=== PATIENT | female | born 1950 | race Caucasian/White ===

== ENCOUNTER → 2016-11-05 | Outpatient (CLI) | payer MEDICARE, OTHER ==
--- NOTE | 2016-11-09 12:50 | MM ---
Reason for exam: screening (asymptomatic). Last mammogram was performed 1 year and 5 months ago. History: Patient is postmenopausal and has history of other cancer at age 54. Cyst aspiration of the left breast. Physical Findings: A clinical breast exam by your physician is recommended on an annual basis and results should be correlated with mammographic findings. MG 3D Screening Mammo W/Cad Bilateral CC and MLO view(s) were taken. Prior study comparison: June 11, 2015, bilateral MG screening mammo w CAD. February 06, 2014, bilateral MG screening mammo w CAD. Finding: There are stable grouped/clustered calcifications in the left breast. No significant changes in finding since June 11, 2015 and February 06, 2014. ASSESSMENT: Benign, BI-RAD 2 RECOMMENDATION: Routine screening mammogram of both breasts in 1 year.
== END | disposition home or self-care (01) ==
LOC: RADMAMWWP 13:44
PROVIDERS: ATTEND Internal Medicine Geriatric Medicine
DX: Z12.31 Encounter for screening mammogram for malignant neoplasm of breast (principal)
CPT/HCPCS: 77063; G0202

== ENCOUNTER → 2017-05-20 | Outpatient (CLI) | payer MEDICARE, OTHER ==
--- NOTE | 2017-05-20 10:01 | CT ---
EXAMINATION TYPE: CT thoracic spine wo con DATE OF EXAM: 05/20/2017 COMPARISON: NONE HISTORY: Pain CT DLP: 1288 mGycm Automated exposure control for dose reduction was used. FINDINGS: Vertebral bodies of the thoracic spine maintain normal vertebral body height and alignment. No gross evidence of spinal canal stenosis or neural foraminal narrowing are seen although these findings are better evaluated with MRI. Osseous structures appear intact. No displaced rib fractures are seen. Sof t tissues are unremarkable. Minimal multilevel degenerative change of the thoracic spine are seen see n as intervertebral joint space narrowing of the mid and upper thoracic spine and small anterior oste ophytes. There is apical pleural thickening, right greater than left. Dependent bibasilar subsegmental atelect asis seen as well as single right upper lobe 4 mm noncalcified pulmonary nodule on series 4 image 45 of series 5 image 66. Geographic groundglass opacities are seen within the lower lobes most pronounce d on the coronal images such as series 5 image 65 and 62. Incidental note of an inferior vena caval filter is made. Unenhanced partial visualization of the upp er abdomen is otherwise unremarkable. Fat attenuated subcentimeter lesion in the anterior left upper pole of the kidney most likely relates to a benign angiomyolipoma. IMPRESSION: 1. NO EVIDENCE OF ACUTE FRACTURE OR MALALIGNMENT OF THE THORACIC SPINE. MILD MULTILEVEL DEGENERATIVE CHANGES WITHOUT GROSS EVIDENCE OF SPINAL CANAL STENOSIS OR NEURAL FORAMINAL NARROWING. 2. MULTIFOCAL GROUNDGLASS GEOGRAPHIC OPACITIES WITH A BASILAR PREDOMINANCE WHICH MAY RELATE TO INFECT IOUS OR INFLAMMATORY PNEUMONITIS SUCH PNEUMONIA. THIS CAN ALSO BE SEEN IN THE VOLUME OVERLOAD ALTH OUGH THE HEART DOES NOT APPEAR ENLARGED. 3. SOLITARY NONCALCIFIED 4 MM PULMONARY NODULE. FOLLOW-UP CT COULD BE PERFORMED IN 12 MONTHS TO EVALU ATE FOR STABILITY.
== END | disposition home or self-care (01) ==
LOC: RADCTMAIN 09:11
PROVIDERS: ATTEND Physical Medicine & Rehabilitation
DX: M47.814 Spondylosis without myelopathy or radiculopathy, thoracic region (principal); J98.4 Other disorders of lung; R91.1 Solitary pulmonary nodule; M54.2 Cervicalgia
CPT/HCPCS: 72128

== ENCOUNTER → 2017-06-14 | Outpatient (CLI) | payer MEDICARE, OTHER ==
[2017-06-14 12:05] LABS: Blood Urea Nitrogen 11 mg/dL (7-17); Non-African American GFR(MDRD) >60 (>60 ml/min/1.73 sqM)
--- NOTE | 2017-06-14 16:09 | CT ---
EXAMINATION TYPE: CT abdomen pelvis w con DATE OF EXAM: 06/14/2017 HISTORY: Left lower quadrant and right mid abdominal pain and constipation. CT DLP: 995mGycm Automated Exposure Control for Dose Reduction was Utilized. CONTRAST: CT scan of the abdomen and pelvis is performed with IV Contrast, patient injected with 89 mL of Omnip aque 300. COMPARISON: None. FINDINGS: LUNG BASES: Minimal subsegmental bibasilar dependent atelectasis is noted. LIVER/GB: No significant abnormality is appreciated. Gallbladder surgically absent. PANCREAS: There is pancreatic atrophy with no evidence of ductal dilatation. SPLEEN: Spleen is nonenlarged and unremarkable. ADRENALS: No significant abnormality is seen. No measurable nodule. KIDNEYS: Right extrarenal pelvis is present. Kidneys enhance and excrete symmetrically other than a p unctate fat-containing left upper pole subcentimeter lesion likely related to an angiomyolipoma. BOWEL: Moderate amount retained colonic stool is seen throughout the nondilated colon. No pericolonic fat stranding or focal bowel wall thickening is seen. UTERUS/ADNEXA: Uterus and ovaries are surgically absent. LYMPH NODES: No greater than 1cm abdominal or pelvic lymph nodes are appreciated. OSSEOUS STRUCTURES: No significant abnormality is seen. Mild multilevel degenerative changes are seen of the thoracolumbar and lumbosacral spine. OTHER: Inferior vena cava filter is present above the renal veins. Additional infrarenal inferior mel a cava filter is also seen. Venous stent is also seen from the inferior vena cava into the left commo n iliac vein. Moderate circumferential calcific atheromatous changes are seen of the abdominal aorta and its branches. IMPRESSION: 1. No evidence of bowel obstruction. Moderate amount of retained colonic stool. 2. 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 3. Postsurgical changes of the inferior vena cava and left common iliac vein.
== END | disposition home or self-care (01) ==
LOC: RADCTMAIN 11:10
PROVIDERS: ATTEND Internal Medicine Geriatric Medicine
DX: R10.84 Generalized abdominal pain (principal); Z98.890 Other specified postprocedural states
CPT/HCPCS: 82565; 84520; 74177; 36415; Q9967

== ENCOUNTER → 2017-09-16 | Outpatient (CLI) | payer MEDICARE, OTHER ==
--- NOTE | 2017-09-16 12:31 | FL ---
EXAMINATION TYPE: FL barium swallow w video DATE OF EXAM: 09/16/2017 COMPARISON: NONE HISTORY: Dysphasia TECHNIQUE: Fluoroscopy. FINDINGS: Fluoroscopic guidance was provided for the procedure performed in conjunction with the [facility] pathology department. Please see complete report forthcoming from the Speech Pathology departmen t. Various consistencies from thin liquid to solids were administered. Fluoroscopy time 1 minute 11 seconds Number of images: 0. No aspiration or penetration was evident. No significant pooling was observed in the vallecula. There was normal propulsion of the bolus. IMPRESSION: 1. Normal modified barium swallow.
== END | disposition home or self-care (01) ==
LOC: RADFLMAIN 11:11
PROVIDERS: ATTEND Psychiatry & Neurology Neurology
DX: R13.10 Dysphagia, unspecified (principal)
CPT/HCPCS: 74230

== ENCOUNTER → 2017-11-22 | Outpatient (CLI) | payer MEDICARE, OTHER ==
--- NOTE | 2017-11-22 16:26 | BD ---
EXAMINATION TYPE: MG DEXA axial skeleton. DATE OF EXAM: 11/22/2017 COMPARISON: NONE CLINICAL HISTORY: 67-year-old female age-related osteoporosis Height: 68 Weight: 177.5 FRAX RISK QUESTIONS: Alcohol (3 or more units per day): no Family History (Parent hip fracture): no Glucocorticoids (More than 3mos): no (Ex: prednisone, prednisolone, methylprednisolone, dexamethasone, and hydrocortisone). History of Fracture in Adulthood: no Secondary Osteoporosis: 1. Type 1 Diabetes: no 2. Hyperthyroidism: no 3. Menopause before 45: no 4. Malnutrition: no 5. Chronic liver disease: no Rheumatoid Arthritis: no Current Tobacco Use: no RISK FACTORS HISTORY OF: Family History of Osteoporosis: yes Active: yes Diet low in dairy products/other sources of calcium: no Postmenopausal woman: hysterectomy age 47 Lost more than 2 inches in height since high school: n o Frequent falls: no Adrenal Insufficiency: no MEDICATIONS: type 2 diabetic meds, high bp meds, cholesterol meds, heart meds Additional History: EXAM MEASUREMENTS: Bone mineral densitometry was performed using the [employer] Digital System. Bone mineral density as measured about the Lumbar spine is: ----- L1-L4(G/cm2): 1.013 T Score Values are as follows: ----- L2: -1.4 ----- L3: -1.7 ----- L4: -1.3 ----- L1-L4: -1.4 Bone mineral density has: decreased -7.8 % since study of: 06.11.2015 Bone mineral density about the R hip (g/cm2): 0.792 Bone mineral density about the L hip (g/cm2): 0.762 T Score values are as follows: -----R Neck: -1.8 -----L Neck: -2.0 -----R Total: -1.3 -----L Total: -1.8 Bone mineral density has: decreased -1.2 % since study of: 06.11.2015 IMPRESSION: Osteopenia (T Score between -2.5 and -1). There is slightly increased risk of fracture and the patient may be considered for treatment. Re-Screen 2-5 years. NOTE: T-SCORE=SD OF THE YOUNG ADULT MEAN.
--- NOTE | 2017-11-23 13:45 | MM ---
Reason for exam: screening (asymptomatic). Last mammogram was performed 1 year and 1 month ago. History: Patient is postmenopausal and has history of other cancer at age 54. Cyst aspiration of the left breast. Physical Findings: A clinical breast exam by your physician is recommended on an annual basis and results should be correlated with mammographic findings. MG 3D Screening Mammo W/Cad Bilateral CC and MLO view(s) were taken. Prior study comparison: November 05, 2016, bilateral MG 3d screening mammo w/cad. June 11, 2015, bilateral MG screening mammo w CAD. The breast tissue is heterogeneously dense. This may lower the sensitivity of mammography. Benign calcifications bilaterally. No suspicious abnormality. No significant changes when compared with prior studies. ASSESSMENT: Benign, BI-RAD 2 RECOMMENDATION: Routine screening mammogram of both breasts in 1 year.
== END | disposition home or self-care (01) ==
LOC: RADMAMWWP 14:37
PROVIDERS: ATTEND Internal Medicine Geriatric Medicine
DX: Z12.31 Encounter for screening mammogram for malignant neoplasm of breast (principal); M81.0 Age-related osteoporosis without current pathological fracture; M85.80 Other specified disorders of bone density and structure, unspecified site
CPT/HCPCS: 77063; 77067; 77080

== ENCOUNTER → 2018-05-02 | Outpatient (CLI) | payer MEDICARE, OTHER ==
--- NOTE | 2018-05-02 11:46 | CT ---
EXAMINATION TYPE: CT brain wo con DATE OF EXAM: 05/02/2018 COMPARISON: 08/06/2016 HISTORY: Migraine with Aura CT DLP: 1121 mGycm Automated exposure control for dose reduction was used. FINDINGS: Area of low attenuation involving the tucker likely artifactual. Findings suggest partially empty sella turcica. Ventricular system is midline. There is no mass effect. No acute hemorrhage. IMPRESSION: NO ACUTE PROCESS. LOW-ATTENUATION THE TUCKER MAY BE ARTIFACTUAL RATHER THAN RELATED TO REMOTE ISCHEMIA. CORRELATE CLINICALLY.
== END | disposition home or self-care (01) ==
LOC: RADCTMAIN 10:52
PROVIDERS: ATTEND Psychiatry & Neurology Neurology
DX: G43.009 Migraine without aura, not intractable, without status migrainosus (principal)
CPT/HCPCS: 70450

== ENCOUNTER → 2018-05-10 | Outpatient (CLI) | payer MEDICARE, OTHER ==
[2018-05-10 13:38] LABS: INR 3.9 (<1.2); Prothrombin Time 34.9 sec (9.0-12.0)
== END | disposition home or self-care (01) ==
LOC: LABWHC1 12:26
PROVIDERS: ATTEND Internal Medicine Cardiovascular Disease
DX: I48.91 Unspecified atrial fibrillation (principal)
CPT/HCPCS: 36415; 85610

== ENCOUNTER → 2018-06-07 | Outpatient (CLI) | payer MEDICARE, OTHER ==
--- NOTE | 2018-06-07 13:13 | CT ---
EXAMINATION TYPE: CT brain wo con DATE OF EXAM: 06/07/2018 COMPARISON: 05/02/2018 HISTORY: Migraine without aura and without status migrainosus, not intractable CT DLP: 999.[address] of the brain was performed. The ventricles, basal cisterns and sulci overlying the cerebral convexities demonstrate mild enlargem ent. There is no evidence for intracranial hemorrhage or sulcal effacement. There is decreased attenuation about the periventricular white matter and deep white matter of both c erebral hemispheres, compatible with chronic small vessel ischemia. Differential diagnosis does inclu de demyelination. No mass effects are seen.No midline shift. Osseous calvarium is intact. If symptoms persist consider MRI. IMPRESSION: 1. Age related atrophic and chronic small vessel ischemic change without acute intracranial process s een at this time.
== END | disposition home or self-care (01) ==
LOC: RADCTMAIN 12:31
PROVIDERS: ATTEND Psychiatry & Neurology Neurology
DX: I67.82 Cerebral ischemia (principal); G43.009 Migraine without aura, not intractable, without status migrainosus; R13.10 Dysphagia, unspecified; R90.89 Other abnormal findings on diagnostic imaging of central nervous system; G31.1 Senile degeneration of brain, not elsewhere classified
CPT/HCPCS: 70450

== ENCOUNTER 2018-07-05 06:39 | Day surgery (SDC) | payer MEDICARE, OTHER ==
[2018-06-29 12:47] VITALS: BMI 24.3
[~2018-07-05 06:39] MED LIST: LACTATED RINGERS 1,000 ML IV SCH
[2018-07-05 07:27] VITALS: RESP 16; TEMP 98.2
[2018-07-05 07:39] LABS: Glucose,Whole Blood 136 mg/dL (75-99)
[2018-07-05] MEDS ORDERED: PROPOFOL 10 MG/ML 20 ML VIAL IV ONE (08:03)
--- NOTE | 2018-07-05 08:48 | P.PCN ---
Date of Procedure: 07/05/18 Procedure(s) Performed: Procedure: Esophagogastroduodenoscopy Preoperative diagnosis: Dysphagia and history of reflux. Postoperative diagnosis: 1. Normal esophagus with no obvious esophagitis or complicated reflux disease. 2. Mild gastritis. 3. No biopsies or interventions were indicated that this time. 4. Incidental finding of fresh blood in the hypopharynx probably related to nasal bleeding. Preparation and sedation: Was provided by anesthesia. Brief clinical history: The patient is a 68-year-old female with history of chronic reflux. She had an upper endoscopy in October 2015 that showed on biopsy chronic esophagitis but there was no evidence of strictures or Duckworth's esophagus. The patient has been on H2 blockers and is referred at this time because of difficulties of the burning in her esophagus and swallowing issues. The purpose of this exam is to rule out stricture or other pathology. Procedure: With the patient on her left lateral decubitus position and after informed consent and adequate sedation, I passed the Olympus-GIF 160 video upper endoscope through into the oropharynx and hypopharynx. There was fresh blood in the hypopharynx probably related to bleeding in the nasopharynx. this was suctioned and there was no evidence of active bleeding. The endoscope was then passed through the cricopharyngeus down the esophagus. GE junction was around 37 cm from the incisors and there was a sliding hiatal hernia around 1-2 cm in size as previously described. The esophagus did not show any obvious erosions or ulcers. There were no strictures or Duckworth's esophagus. The endoscope was then passed into the stomach which was insufflated with air and inspected in detail including the retroflex view in the cardia. There was some mottling and erythema in the antrum but no ulcers or erosions. Pyloric channel , duodenal bulb, post bulbar area and descending duodenum appeared within normal limits. No biopsies or endoscopic intervention were indicated. The patient tolerated the procedure well. Plan: The patient was reassured. She will continue antireflux diet and measures and H2 norman therapy. If her symptoms persist I might consider further workup for motility disorder especially if there is nutritional compromise. She will follow-up with you as planned and I will be happy to see in the office if her symptoms persist or worsen.
[2018-07-05 09:01] VITALS: BP 106/65; PULSE 58
== END 2018-07-05 09:35 | disposition home or self-care (01) ==
LOC: ORWHC2ENDO 06:39
DX: K29.70 Gastritis, unspecified, without bleeding (principal); K21.9 Gastro-esophageal reflux disease without esophagitis; K44.9 Diaphragmatic hernia without obstruction or gangrene; E11.9 Type 2 diabetes mellitus without complications; I10 Essential (primary) hypertension; E78.5 Hyperlipidemia, unspecified; Z86.718 Personal history of other venous thrombosis and embolism; Z88.8 Allergy status to other drugs, medicaments and biological substances; Z79.84 Long term (current) use of oral hypoglycemic drugs; Z79.01 Long term (current) use of anticoagulants; Z79.899 Other long term (current) drug therapy; Z89.512 Acquired absence of left leg below knee
CPT/HCPCS: 43235; J2704

== ENCOUNTER → 2018-12-15 | Outpatient (CLI) | payer MEDICARE, OTHER ==
--- NOTE | 2018-12-16 11:58 | MM ---
Reason for exam: screening (asymptomatic). Last mammogram was performed 1 year and 1 month ago. History: Patient is postmenopausal and has history of other cancer at age 54. Family history of breast cancer in daughter at age 47. Cyst aspiration of the left breast. Physical Findings: A clinical breast exam by your physician is recommended on an annual basis and results should be correlated with mammographic findings. MG 3D Screening Mammo W/Cad Bilateral CC and MLO view(s) were taken. Prior study comparison: November 22, 2017, bilateral MG 3d screening mammo w/cad. November 05, 2016, bilateral MG 3d screening mammo w/cad. The breast tissue is heterogeneously dense. This may lower the sensitivity of mammography. Stable benign calcifications. There is no discrete abnormality. No significant changes when compared with prior studies. ASSESSMENT: Benign, BI-RAD 2 RECOMMENDATION: Routine screening mammogram of both breasts in 1 year.
== END ==
LOC: RADMAMWWP 11:02
PROVIDERS: ATTEND Internal Medicine Geriatric Medicine
DX: Z12.31 Encounter for screening mammogram for malignant neoplasm of breast (principal)
CPT/HCPCS: 77063; 77067

== ENCOUNTER 2018-12-26 12:44 | Emergency (ER) | payer MEDICARE, OTHER ==
[2018-12-26 12:50] VITALS: RESP 18
[2018-12-26] MEDS ORDERED: SUCRALFATE 1 GM TAB PO STA (14:05)
[2018-12-26] MEDS ORDERED: LIDOCAINE VISCOUS 2% 15 ML CUP MUCOUS MEM ONE (14:05)
[2018-12-26] MEDS ORDERED: FAMOTIDINE 20 MG/2 ML VIAL IV STA (14:05)
[2018-12-26] MEDS ORDERED: MAG HYDROX/AL HYDROX/SIMETH 30 ML CUP PO PRN (14:05)
--- NOTE | 2018-12-26 14:08 | ED ---
General Adult HPI - General Chief complaint: ENT Stated complaint: cough, SOB, difficulty swallowing Time Seen by Provider: 12/26/18 13:47 Source: patient Mode of arrival: ambulatory Limitations: no limitations - History of Present Illness Initial comments: Patient is a 68-year-old female with a history of GERD, and hiatal hernia who presents with a chief complaint of throat discomfort, and cough for 3 months. The patient states that she was seen by GI but she states she was "dismissed." Patient is a [facility]. She cannot identify any inciting incident. There are no aggravating or alleviating factors. Patient states that she coughs worse at night while laying flat. She says that she sleeps well through the night but loses her voice by morning. He denied any fever, chills, nausea or vomiting, or unintentional weight loss. - Related Data Home Medications Medication Instructions Recorded Confirmed Topiramate [Trokendi Xr] 100 mg PO HS 11/06/15 12/26/18 Pravastatin Sodium [Pravachol] 40 mg PO HS 06/29/18 12/26/18 Gabapentin [Neurontin] 300 mg PO TID 12/26/18 12/26/18 Warfarin Sodium 7.5 mg PO HS 12/26/18 12/26/18 Previous Rx's Medication Instructions Recorded Enalapril [Vasotec] 5 mg PO DAILY #30 tab 03/02/15 Hydrochlorothiazide [Hydrodiuril] 12.5 mg PO DAILY #30 cap 03/02/15 Potassium Chloride [Klor-Con 10] 10 meq PO BID #60 tablet.er 03/02/15 Ranitidine HCl [Zantac] 150 mg PO BID #60 tab 03/02/15 metFORMIN HCL [Glucophage] 500 mg PO BID #60 tab 03/02/15 Amitriptyline HCl [Elavil] 100 mg PO HS #30 tablet 04/01/15 Propranolol [Inderal] 40 mg PO BID #60 tab 04/01/15 Omeprazole [PriLOSEC] 0 mg PO DAILY #30 capsule. 12/26/18 Sucralfate [Carafate] 1 gm PO ACHS #20 tablet 12/26/18 Allergies Allergy/AdvReac Type Severity Reaction Status Date / Time heparin Allergy Anaphylaxis Verified 12/26/18 13:54 Review of Systems ROS Statement: Those systems with pertinent positive or pertinent negative responses have been documented in the HPI. ROS Other: All systems not noted in ROS Statement are negative. ENT: Reports: throat pain Past Medical History Past Medical History: Diabetes Mellitus, Deep Vein Thrombosis (DVT), GERD/Reflux, Hyperlipidemia, Hypertension Additional Past Medical History / Comment(s): CHRONIC CONSTIPATION, ABD. PAIN, HX MIGRAINES, HX DVT LEG, HAS PROSTHESIS LEFT BELOW KNEE History of Any Multi-Drug Resistant Organisms: None Reported Past Surgical History: Cholecystectomy, Hysterectomy Additional Past Surgical History / Comment(s): left BKA. colonoscopy Past Anesthesia/Blood Transfusion Reactions: No Reported Reaction Past Psychological History: Anxiety, Depression Smoking Status: Never smoker Past Alcohol Use History: None Reported Past Drug Use History: None Reported - Past Family History Mother Family Medical History: Cancer Additional Family Medical History / Comment(s): COLON General Exam Limitations: no limitations General appearance: alert, in no apparent distress Head exam: Present: atraumatic, normocephalic Eye exam: Present: normal appearance ENT exam: Present: normal exam Neck exam: Present: normal inspection Respiratory exam: Present: normal lung sounds bilaterally. Absent: respiratory distress, wheezes Cardiovascular Exam: Present: regular rate, normal rhythm GI/Abdominal exam: Present: soft. Absent: distended, tenderness Rectal exam: Present: deferred Extremities exam: Present: normal inspection Back exam: Present: normal inspection Neurological exam: Present: alert, oriented X3 Psychiatric exam: Present: normal affect, normal mood Skin exam: Present: warm, dry, intact Course Vital Signs 12/26/18 12:47 Temperature 98.0 F Pulse Rate 74 Respiratory 18 Rate Blood Pressure 154/78 O2 Sat by Pulse 100 Oximetry Medical Decision Making - Medical Decision Making Patient presents with chief complaint throat pain for 3 months. On initial evaluation, vitals are stable, patient is in no acute distress. Symptoms consistent with GERD. Patient will be given a GI cocktail, she'll be evaluated basic labs including cardiac enzymes. She has no history, denying chest pain c urrently. 4:14 PM Evaluation this patient is unremarkable. Chest x-ray is unremarkable. Her evaluation, patient states that her symptoms have improved of her GI cocktail. Patient will be prescribed Prilosec and Carafate. She will be given GI follow- up as it would likely benefit her to have an EGD. All questions answered at this time, patient instructed to follow up with primary care 1-2 days, follow with GI, return to the emergency department if symptoms worsen or change. - Lab Data Result diagrams: 12/26/18 14:34 12/26/18 14:34 Lab Results 12/26/18 12/26/18 12/26/18 Range/Units 14:34 14:34 14:34 WBC 8.8 (3.8-10.6) k/uL RBC 4.38 (3.80-5.40) m/uL Hgb 13.1 (11.4-16.0) gm/dL Hct 38.3 (34.0-46.0) % MCV 87.4 (80.0-100.0) fL MCH 29.9 (25.0-35.0) pg MCHC 34.2 (31.0-37.0) g/dL RDW 13.1 (11.5-15.5) % Plt Count 237 (150-450) k/uL Neutrophils % 66 % Lymphocytes % 22 % Monocytes % 5 % Eosinophils % 5 % Basophils % 1 % Neutrophils # 5.8 (1.3-7.7) k/uL Lymphocytes # 1.9 (1.0-4.8) k/uL Monocytes # 0.4 (0-1.0) k/uL Eosinophils # 0.4 (0-0.7) k/uL Basophils # 0.1 (0-0.2) k/uL Sodium 140 (137-145) mmol/L Potassium 3.7 (3.5-5.1) mmol/L Chloride 107 (98-107) mmol/L Carbon Dioxide 23 (22-30) mmol/L Anion Gap 10 mmol/L BUN 18 H (7-17) mg/dL Creatinine 0.68 (0.52-1.04) mg/dL Est GFR (CKD-EPI)AfAm >90 (>60 ml/min/1.73 sqM) Est GFR (CKD-EPI)NonAf >90 (>60 ml/min/1.73 sqM) Glucose 110 H (74-99) mg/dL Calcium 9.9 (8.4-10.2) mg/dL Total Bilirubin 0.4 (0.2-1.3) mg/dL AST 31 (14-36) U/L ALT 31 (9-52) U/L Alkaline Phosphatase 104 (38-126) U/L Troponin I <0.012 (0.000-0.034) ng/mL Total Protein 6.8 (6.3-8.2) g/dL Albumin 4.1 (3.5-5.0) g/dL Lipase 45 (23-300) U/L Disposition Clinical Impression: GERD (gastroesophageal reflux disease) Disposition: HOME SELF-CARE Condition: Good Instructions (If sedation given, give patient instructions): Gastroesophageal Reflux Disease (ED) Prescriptions: Sucralfate [Carafate] 1 gm PO ACHS #20 tablet Omeprazole [PriLOSEC] 0 mg PO DAILY #30 capsule.dr Is patient prescribed a controlled substance at d/c from ED?: No Referrals: Jon Elena MD [Primary Care Provider] - 1-2 days Tamara Coker MD [STAFF PHYSICIAN] - 1-2 days Austin Simms MD [STAFF PHYSICIAN] - 1-2 days
[2018-12-26 14:46] LABS: Basophils # (A) 0.1 k/uL (0-0.2); Basophils % (A) 1 %; Eosinophils # (A) 0.4 k/uL (0-0.7); Eosinophils % (A) 5 %; HCT 38.3 % (34.0-46.0); HGB 13.1 gm/dL (11.4-16.0); Lymphocytes # (A) 1.9 k/uL (1.0-4.8); Lymphocytes % (A) 22 %; MCH 29.9 pg (25.0-35.0); MCHC 34.2 g/dL (31.0-37.0); MCV 87.4 fL (80.0-100.0); Mean Platelet Volume 7.1; Monocytes # (A) 0.4 k/uL (0-1.0); Monocytes % (A) 5 %; Neutrophils # (A) 5.8 k/uL (1.3-7.7); Neutrophils % (A) 66 %; Platelet Count 237 k/uL (150-450); RBC 4.38 m/uL (3.80-5.40); RDW 13.1 % (11.5-15.5); WBC 8.8 k/uL (3.8-10.6)
[2018-12-26 14:56] LABS: ALT 31 U/L (9-52); AST 31 U/L (14-36); Albumin 4.1 g/dL (3.5-5.0); Alkaline Phosphatase 104 U/L (38-126); Anion Gap 10 mmol/L; Blood Urea Nitrogen 18 mg/dL (7-17); Calcium 9.9 mg/dL (8.4-10.2); Carbon Dioxide 23 mmol/L (22-30); Chloride 107 mmol/L (98-107); Glucose 110 mg/dL (74-99); Lipase 45 U/L (23-300); Potassium 3.7 mmol/L (3.5-5.1); Sodium 140 mmol/L (137-145); Total Bilirubin 0.4 mg/dL (0.2-1.3); Total Protein 6.8 g/dL (6.3-8.2)
--- NOTE | 2018-12-26 14:57 | XR ---
EXAMINATION TYPE: XR chest 2V DATE OF EXAM: 12/26/2018 COMPARISON: NONE HISTORY: Pain, cough and shortness of breath TECHNIQUE: Frontal and lateral views of the chest are obtained. FINDINGS: Patient is rotated. There is an inferior vena cava filter present which shows a tilted appe arance at the liver level. More peripherally and additional inferior vena cava filter is present, puja gical clips are present in the right upper quadrant. There is no focal air space opacity, pleural eff usion, or pneumothorax seen. The cardiac silhouette size is within normal limits. The osseous stru ctures are intact. IMPRESSION: No acute cardiopulmonary process.
[2018-12-26 16:23] VITALS: BP 119/67; PULSE 59; TEMP 97.1
== END 2018-12-26 16:36 | disposition home or self-care (01) ==
LOC: EC 12:44
DX: K21.9 Gastro-esophageal reflux disease without esophagitis (principal); R05 Cough; R07.0 Pain in throat; E78.5 Hyperlipidemia, unspecified; I10 Essential (primary) hypertension; G43.909 Migraine, unspecified, not intractable, without status migrainosus; Z86.718 Personal history of other venous thrombosis and embolism; Z79.01 Long term (current) use of anticoagulants; Z79.899 Other long term (current) drug therapy; Z88.8 Allergy status to other drugs, medicaments and biological substances; Z89.512 Acquired absence of left leg below knee; Z90.49 Acquired absence of other specified parts of digestive tract
CPT/HCPCS: 36415; 71046; 80053; 83690; 84484; 85025; 93005; 96374; 99285

== ENCOUNTER → 2020-06-03 | Outpatient (CLI) | payer MEDICARE, OTHER ==
--- NOTE | 2020-06-03 14:56 | XR ---
EXAMINATION TYPE: XR chest 2V DATE OF EXAM: 06/03/2020 COMPARISON: Prior chest x-ray 12/26/2018 HISTORY: Costochondritis, chest pain TECHNIQUE: Frontal and lateral views of the chest are obtained. FINDINGS: There is no focal air space opacity, pleural effusion, or pneumothorax seen. The cardiac silhouette size is within normal limits. There is an inferior vena cava filter present which shows i ntrahepatic inferior vena cava location. The osseous structures are intact. Patient is rotated. Surgi de clips present in the right upper quadrant. IMPRESSION: No acute cardiopulmonary process. Stable inferior vena cava filter placement as describe d.
== END | disposition home or self-care (01) ==
LOC: RADXRMAIN 14:33
PROVIDERS: ATTEND Nurse Practitioner Gerontology
DX: M94.0 Chondrocostal junction syndrome [Tietze] (principal); Z95.828 Presence of other vascular implants and grafts
CPT/HCPCS: 71046

== ENCOUNTER → 2021-05-26 | Outpatient (CLI) | payer MEDICARE, OTHER ==
--- NOTE | 2021-05-27 11:11 | MM ---
Reason for exam: screening (asymptomatic). Last mammogram was performed 2 years and 5 months ago. History: Patient is postmenopausal and has history of other cancer at age 54. Family history of breast cancer in daughter at age 47. Cyst aspiration of the left breast. Physical Findings: A clinical breast exam by your physician is recommended on an annual basis and results should be correlated with mammographic findings. MG 3D Screening Mammo W/Cad Bilateral CC and MLO view(s) were taken. Prior study comparison: December 15, 2018, bilateral MG 3d screening mammo w/cad. November 22, 2017, bilateral MG 3d screening mammo w/cad. November 05, 2016, bilateral MG 3d screening mammo w/cad. There are scattered fibroglandular densities. No significant changes when compared with prior studies. ASSESSMENT: Benign, BI-RAD 2 RECOMMENDATION: Routine screening mammogram of both breasts in 1 year.
== END | disposition home or self-care (01) ==
LOC: RADMAMWWP 11:22
PROVIDERS: ATTEND Internal Medicine Geriatric Medicine
DX: Z12.31 Encounter for screening mammogram for malignant neoplasm of breast (principal); Z80.3 Family history of malignant neoplasm of breast
CPT/HCPCS: 77063; 77067

== ENCOUNTER 2022-02-26 15:40 | Inpatient (IN) | payer MEDICARE, OTHER ==
[2022-02-26] MEDS ORDERED: HYDROcodone/APAP 7.5-325MG 1 EACH TAB PO ONE (16:21)
--- NOTE | 2022-02-26 16:24 | ED ---
General Adult HPI - General Chief complaint: Wound/Laceration Stated complaint: Left Leg amputation pain, possible infection Time Seen by Provider: 02/26/22 16:05 Source: patient Mode of arrival: wheelchair Limitations: no limitations - History of Present Illness Initial comments: 72-year-old female with past medical history of HIT, BKA left lower extremity presents the emergency department with pain in her distal stump, pain behind her knee and accompanying redness. Reports to issues for the past several months. She did have a large fluctuant area with purulent drainage however this has been improving on its own. She continues to have redness with increasing pain to the point where she can no longer ambulate on her prosthesis. She was concerned that her prosthesis was causing irritation. This morning the patient awoke and began having pain behind her knee with a "lump". She is on Coumadin with a Ridott filter because of her history of DVT. Has not had any recent imaging of her lower extremity. Denies any chest pain or shortness of breath. No fevers. INR has been therapeutic and is normally checked by Dr. Coker. No other alleviating, precipitating factors - Related Data Home Medications Medication Instructions Recorded Confirmed Pravastatin Sodium [Pravachol] 40 mg PO DAILY 06/29/18 02/26/22 Ascorbic Acid [Vitamin C] 1,000 mg PO DAILY 02/26/22 02/26/22 Cholecalciferol [Vitamin D3 (25 25 mcg PO DAILY 02/26/22 02/26/22 Mcg = 1000 Iu)] DULoxetine HCL [Cymbalta] 20 mg PO DAILY 02/26/22 02/26/22 Multivitamins, Thera [Multivitamin 1 tab PO DAILY 02/26/22 02/26/22 (formulary)] Omeprazole [PriLOSEC] 40 mg PO DAILY 02/26/22 02/26/22 Potassium Chloride [Klor-Con 10 ER] 10 meq PO DAILY 02/26/22 02/26/22 Topiramate [Topamax] 25 mg PO BID 02/26/22 02/26/22 Topiramate [Topamax] 100 mg PO BID 02/26/22 02/26/22 metFORMIN HCL [Glucophage] 1,000 mg PO BID 02/26/22 02/26/22 Previous Rx's Medication Instructions Recorded Amitriptyline HCl [Elavil] 100 mg PO HS #30 tablet 04/01/15 Propranolol [Inderal] 40 mg PO BID #60 tab 04/01/15 Amoxic-Pot Clav 875-125Mg 1 tab PO BID 5 Days #10 tab 03/02/22 [Augmentin 875-125] Apixaban [Eliquis] 10 mg PO BID tab 03/02/22 Furosemide [Lasix] 20 mg PO DAILY #0 tab 03/02/22 Gabapentin [Neurontin] 300 mg PO TID #6 cap 03/02/22 HYDROcodone/APAP 7.5-325MG [[place] 1 tab PO Q6H PRN #4 tab 03/02/22 7.5-325] INSULIN ASPART (NovoLOG) [NovoLOG 0 unit SQ ACHS each 03/02/22 (formulary)] Allergies Allergy/AdvReac Type Severity Reaction Status Date / Time heparin Allergy Anaphylaxis Verified 02/26/22 19:34 Review of Systems ROS Statement: Those systems with pertinent positive or pertinent negative responses have been documented in the HPI. ROS Other: All systems not noted in ROS Statement are negative. Past Medical History Past Medical History: Diabetes Mellitus, Deep Vein Thrombosis (DVT), GERD/Reflux, Hyperlipidemia, Hypertension Additional Past Medical History / Comment(s): CHRONIC CONSTIPATION, ABD. PAIN, HX MIGRAINES, HX DVT LEG, HAS PROSTHESIS LEFT BELOW KNEE since 1997 History of Any Multi-Drug Resistant Organisms: None Reported Past Surgical History: Cholecystectomy, Hysterectomy Additional Past Surgical History / Comment(s): left BKA. colonoscopy Past Anesthesia/Blood Transfusion Reactions: No Reported Reaction Past Psychological History: Anxiety, Depression Past Alcohol Use History: None Reported Past Drug Use History: None Reported - Past Family History Mother Family Medical History: Cancer Additional Family Medical History / Comment(s): COLON General Exam Limitations: no limitations General appearance: alert, in no apparent distress Head exam: Present: atraumatic, normocephalic, normal inspection ENT exam: Present: normal exam, mucous membranes moist Neck exam: Present: normal inspection. Absent: tenderness, meningismus, lymphadenopathy Respiratory exam: Present: normal lung sounds bilaterally. Absent: respiratory distress, wheezes, rales, rhonchi, stridor Cardiovascular Exam: Present: regular rate, normal rhythm, normal heart sounds. Absent: systolic murmur, diastolic murmur, rubs, gallop, clicks GI/Abdominal exam: Present: soft, normal bowel sounds. Absent: distended, tenderness, guarding, rebound, rigid Extremities exam: Present: other (bka left leg. distal stump has some associated redness. no fluctuance. small area of ulceration without drainage. posterior popliteal tenderness to palpation) Course Vital Signs 02/26/22 02/26/22 02/26/22 15:42 18:00 20:30 Temperature 98.6 F 98.6 F Pulse Rate 82 70 72 Respiratory 20 18 18 Rate Blood Pressure 151/82 126/70 144/73 O2 Sat by Pulse 97 98 98 Oximetry Medical Decision Making - Medical Decision Making Upon arrival patient was placed into room 7. There are history and physical e xam was performed. There is mild redness to the location of the patient's distal stump without pustular drainage. Laboratory studies were conducted including an INR which is 2.9. X-ray demonstrates no acute process. Ultrasound of the lower extremity demonstrates positive for DVT. As the patient does have new and worsening symptoms these clots are assumed to be new at this time. I spoke with Dr. Elena in regards to the patient's care. She is therapeutic with her Coumadin level and therefore I will admit for vascular consult. The patient is covered with a dose of antibiotics due to the redness. Patient agreed to be admitted was transferred to floor in stable condition - Lab Data Result diagrams: 03/02/22 05:13 03/02/22 05:13 Lab Results 02/26/22 02/26/22 02/26/22 Range/Units 16:26 16:26 18:28 WBC 10.2 (3.8-10.6) k/uL RBC 4.40 (3.80-5.40) m/uL Hgb 13.9 (11.4-16.0) gm/dL Hct 39.6 (34.0-46.0) % MCV 90.0 (80.0-100.0) fL MCH 31.7 (25.0-35.0) pg MCHC 35.2 (31.0-37.0) g/dL RDW 12.6 (11.5-15.5) % Plt Count 230 (150-450) k/uL MPV 8.2 Immature Gran % (Auto) % Absolute Nucleated RBC (0.00-0.00) X 10*3/uL Neutrophils % 72 % Lymphocytes % 18 % Monocytes % 5 % Eosinophils % 2 % Basophils % 1 % Immature Gran # (0.00-0.04) X 10*3/uL Neutrophils # 7.3 (1.3-7.7) k/uL Lymphocytes # 1.9 (1.0-4.8) k/uL Monocytes # 0.6 (0-1.0) k/uL Eosinophils # 0.2 (0-0.7) k/uL Basophils # 0.1 (0-0.2) k/uL NRBC/100 WBC Diff (0.0-0.0) /100 WBCS PT 29.0 H (9.0-12.0) sec INR 2.9 H (<1.2) Sodium 138 (137-145) mmol/L Potassium 3.7 (3.5-5.1) mmol/L Chloride 101 (98-107) mmol/L Carbon Dioxide 26 (22-30) mmol/L Anion Gap 11 mmol/L BUN 18 H (7-17) mg/dL Creatinine 0.91 (0.52-1.04) mg/dL Est GFR (CKD-EPI)AfAm 73 (>60 ml/min/1.73 sqM) Est GFR (CKD-EPI)NonAf 64 (>60 ml/min/1.73 sqM) BUN/Creatinine Ratio (12.00-20.00) Ratio Glucose 138 H (74-99) mg/dL Calcium 9.8 (8.4-10.2) mg/dL Total Bilirubin 0.2 (0.2-1.3) mg/dL AST 25 (14-36) U/L ALT 21 (4-34) U/L Alkaline Phosphatase 100 (38-126) U/L Total Protein 7.2 (6.3-8.2) g/dL Albumin 4.6 (3.5-5.0) g/dL Globulin (1.6-3.3) g/dL Albumin/Globulin Ratio (1.60-3.17) g/dL 02/27/22 02/27/22 02/27/22 Range/Units 04:48 04:48 04:48 WBC 6.88 (3.8-10.6) k/uL RBC 3.93 L (3.80-5.40) m/uL Hgb 11.7 L (11.4-16.0) gm/dL Hct 35.1 L (34.0-46.0) % MCV 89.3 (80.0-100.0) fL MCH 29.8 (25.0-35.0) pg MCHC 33.3 (31.0-37.0) g/dL RDW 11.9 (11.5-15.5) % Plt Count 165 (150-450) k/uL MPV 10.9 Immature Gran % (Auto) 0.3 % Absolute Nucleated RBC 0 (0.00-0.00) X 10*3/uL Neutrophils % 49.2 % Lymphocytes % 36.6 % Monocytes % 10.6 % Eosinophils % 2.6 % Basophils % 0.7 % Immature Gran # 0.02 (0.00-0.04) X 10*3/uL Neutrophils # 3.38 (1.3-7.7) k/uL Lymphocytes # 2.52 (1.0-4.8) k/uL Monocytes # 0.73 (0-1.0) k/uL Eosinophils # 0.18 (0-0.7) k/uL Basophils # 0.05 (0-0.2) k/uL NRBC/100 WBC Diff 0 (0.0-0.0) /100 WBCS PT 24.0 H (9.0-12.0) sec INR 2.21 H (<1.2) Sodium 140 (137-145) mmol/L Potassium 3.3 L (3.5-5.1) mmol/L Chloride 103 (98-107) mmol/L Carbon Dioxide 24.9 (22-30) mmol/L Anion Gap 12.10 mmol/L BUN 16.2 (7-17) mg/dL Creatinine 0.8 (0.52-1.04) mg/dL Est GFR (CKD-EPI)AfAm 86.0 (>60 ml/min/1.73 sqM) Est GFR (CKD-EPI)NonAf 74.2 (>60 ml/min/1.73 sqM) BUN/Creatinine Ratio 20.25 H (12.00-20.00) Ratio Glucose 126 H (74-99) mg/dL Calcium 8.9 (8.4-10.2) mg/dL Total Bilirubin 0.30 (0.2-1.3) mg/dL AST 26 (14-36) U/L ALT 21 (4-34) U/L Alkaline Phosphatase 82 (38-126) U/L Total Protein 5.8 L (6.3-8.2) g/dL Albumin 3.9 (3.5-5.0) g/dL Globulin 1.9 (1.6-3.3) g/dL Albumin/Globulin Ratio 2.05 (1.60-3.17) g/dL Disposition Clinical Impression: Leg pain, left, DVT (deep venous thrombosis), Anticoagulated on Coumadin Disposition: ADMITTED IP TO THIS [facility] Condition: Stable Is patient prescribed a controlled substance at d/c from ED?: No Time of Disposition: 19:40 Decision to Admit Reason: Admit from EC Decision Date: 02/26/22 Decision Time: 19:40
[2022-02-26 16:34] LABS: Basophils # (A) 0.1 k/uL (0-0.2); Basophils % (A) 1 %; Eosinophils # (A) 0.2 k/uL (0-0.7); Eosinophils % (A) 2 %; HCT 39.6 % (34.0-46.0); HGB 13.9 gm/dL (11.4-16.0); Lymphocytes # (A) 1.9 k/uL (1.0-4.8); Lymphocytes % (A) 18 %; MCH 31.7 pg (25.0-35.0); MCHC 35.2 g/dL (31.0-37.0); Mean Platelet Volume 8.2; Monocytes # (A) 0.6 k/uL (0-1.0); Monocytes % (A) 5 %; Neutrophils # (A) 7.3 k/uL (1.3-7.7); Neutrophils % (A) 72 %; Platelet Count 230 k/uL (150-450); RDW 12.6 % (11.5-15.5); WBC 10.2 k/uL (3.8-10.6)
[2022-02-26 17:01] LABS: Albumin 4.6 g/dL (3.5-5.0); Calcium 9.8 mg/dL (8.4-10.2); Potassium 3.7 mmol/L (3.5-5.1); Total Bilirubin 0.2 mg/dL (0.2-1.3); Total Protein 7.2 g/dL (6.3-8.2)
--- NOTE | 2022-02-26 17:12 | XR ---
PROCEDURE: XR knee complete LT - 3V DATE AND TIME: 02/26/2022 4:57 PM CLINICAL INDICATION: Pain, infection TECHNIQUE: AP, oblique, and crosstable lateral views COMPARISON: None FINDINGS: There is no fracture or malalignment. No bone erosions. Moderately prominent tricompartmental osteoarthrosis changes appreciated. The soft tissues are negative for acute findings. No joint effusion. IMPRESSION: No acute radiographic process.
--- NOTE | 2022-02-26 18:22 | US ---
EXAMINATION TYPE: US venous doppler duplex LE LT DATE OF EXAM: 02/26/2022 6:10 PM COMPARISON: NONE CLINICAL HISTORY: pain. Left leg below knee amputation. On blood thinners. SIDE PERFORMED: Left TECHNIQUE: The lower extremity deep venous system is examined utilizing real time linear array sonog eron with graded compression, doppler sonography and color-flow sonography. VESSELS IMAGED: Common Femoral Vein Deep Femoral Vein Greater Saphenous Vein * Femoral Vein Popliteal Vein Small Saphenous Vein * Proximal Calf Veins- not visualized (* superficial vessels) FINDINGS: Grayscale, color doppler, spectral doppler imaging performed of the deep veins of the lower extremiti es. There is normal flow, compressibility, vascular waveforms. Filling defects noted within the common femoral vein and proximal popliteal vein, consistent with carlos a p venous thrombus. IMPRESSION: Positive for left lower extremity venous thrombus.
[2022-02-26 19:03] LABS: INR 2.9 (<1.2)
[2022-02-26] MEDS ORDERED: HYDROcodone/APAP 5-325MG 1 EACH TAB PO PRN (19:41)
[2022-02-26] MEDS ORDERED: NALOXONE 0.4 MG/ML 1 ML VIAL IV PRN (19:41)
[2022-02-26] MEDS ORDERED: WARFARIN 3 MG TAB PO SCH (21:00)
[2022-02-26] MEDS: metFORMIN 500 MG TAB PO SCH (21:56)
[2022-02-26] MEDS: AMITRIPTYLINE HCL 50 MG TAB PO SCH (21:56)
[2022-02-26] MEDS: TOPIRAMATE 100 MG TAB PO SCH (21:57)
[2022-02-26] MEDS: PROPRANOLOL 40 MG TAB PO SCH (21:57)
[2022-02-26] MEDS: GABAPENTIN 300 MG CAP PO SCH (21:58)
[2022-02-26] MEDS: TOPIRAMATE 25 MG TAB PO SCH (21:58)
[2022-02-26] MEDS: HYDROcodone/APAP 7.5-325MG 1 EACH TAB PO PRN (21:59)
[2022-02-26] MEDS: AMPICILLIN-SULBACTAM 3 GM in SODIUM CHLORIDE 0.9% 100 ML IVPB SCH (22:53)
[2022-02-27] MEDS: metFORMIN 500 MG TAB PO SCH ×2 (07:52→20:14)
[2022-02-27] MEDS: TOPIRAMATE 25 MG TAB PO SCH ×2 (07:52→20:15)
[2022-02-27] MEDS: ASCORBIC ACID 500 MG TAB PO SCH (07:52)
[2022-02-27] MEDS: PANTOPRAZOLE 40 MG TABLET PO SCH (07:52)
[2022-02-27] MEDS: MULTIVITAMINS, THERA 1 EACH TAB PO SCH (07:52)
[2022-02-27] MEDS: AMPICILLIN-SULBACTAM 3 GM in SODIUM CHLORIDE 0.9% 100 ML IVPB SCH ×3 (07:52→23:24)
[2022-02-27] MEDS: POTASSIUM CHLORIDE ER 10 MEQ TAB.ER.PRT PO SCH (07:53)
[2022-02-27] MEDS: CHOLECALCIFEROL 25 MCG (1000 IU) TABLET PO SCH (07:53)
[2022-02-27] MEDS: lisinopriL 10 MG TAB PO SCH (07:53)
[2022-02-27] MEDS: hydroCHLOROthiazide 12.5 MG CAP PO SCH (07:54)
[2022-02-27] MEDS: PROPRANOLOL 40 MG TAB PO SCH ×2 (07:54→20:14)
[2022-02-27] MEDS: PRAVASTATIN SODIUM 40 MG TAB PO SCH (07:54)
[2022-02-27] MEDS: TOPIRAMATE 100 MG TAB PO SCH ×2 (07:54→20:25)
[2022-02-27] MEDS: DULoxetine HCL 20 MG CAPSULE.DR PO SCH (07:54)
[2022-02-27 08:56] LABS: Basophils # (A) 0.05 X 10*3/uL (0.00-0.10); Basophils % (A) 0.7 %; Eosinophils # (A) 0.18 X 10*3/uL (0.04-0.35); Eosinophils % (A) 2.6 %; HCT 35.1 % (37.2-46.3); HGB 11.7 g/dL (12.0-15.0); Immature Grans, Automated 0.3 %; Lymphocytes # (A) 2.52 X 10*3/uL (0.90-5.00); Lymphocytes % (A) 36.6 %; MCH 29.8 pg (27.0-32.0); MCHC 33.3 g/dL (32.0-37.0); MCV 89.3 fL (80.0-97.0); Mean Platelet Volume 10.9 fL (9.5-12.2); Monocytes # (A) 0.73 X 10*3/uL (0.20-1.00); Monocytes % (A) 10.6 %; NRBC Per 100 WBC 0 /100 WBCS (0.0-0.0); Neutrophils # (A) 3.38 X 10*3/uL (1.80-7.70); Neutrophils % (A) 49.2 %; Platelet Count 165 X 10*3/uL (140-440); RBC 3.93 X 10*6/uL (4.10-5.20); RDW 11.9 % (11.5-14.5); WBC 6.88 X 10*3/uL (4.50-10.00)
[2022-02-27 09:03] LABS: Albumin 3.9 g/dL (3.8-4.9); Albumin/Globulin Ratio 2.05 (1.60-3.17); Anion Gap 12.1 mmol/L (10.00-18.00); BUN/Creat Ratio 20.25 Ratio (12.00-20.00); Blood Urea Nitrogen 16.2 mg/dL (9.0-27.0); Calcium 8.9 mg/dL (8.7-10.3); Carbon Dioxide 24.9 mmol/L (20.0-27.5); Globulin 1.9 g/dL (1.6-3.3); Non-African American GFR(CKD) 74.2 (60.0-200.0); Potassium 3.3 mmol/L (3.5-5.5); Total Bilirubin 0.3 mg/dL (0.30-1.20); Total Protein 5.8 g/dL (6.2-8.2)
--- NOTE | 2022-02-27 10:02 | P.HPIM ---
History of Present Illness H&P Date: 02/27/22 HISTORY OF PRESENT ILLNESS This is a 72-year-old female patient with past medical history of diabetes mellitus type 2, hypertension, hyperlipidemia, gastroesophageal reflux disease, recurrent depression, history of DVT, occurred following total hysterectomy surgery, in the left lower extremity with ALLERGIC reaction to heparin leading to necrotic tissue and below the knee amputation on the left approximate 20 years ago. Patient has been on Coumadin for the entire time and has been instructed to be on Coumadin for life. She believes there may be an issue that she does not have insurance coverage for some of the newer agents. Patient gives history that for the past 3 days she has had difficulty walking due to pain in her left leg below the knee towards the stump. She states she's had increased edema to the area. She has a very small ulcer to the end of the nadine mp. Patient was found to be afebrile, heart rate 82, blood pressure 151/82, pulse ox 97% on room air. CBC was within normal limits. INR 2.9. BUN 18 and creatinine 0.91. Blood sugar 138. Ultrasound revealed DVT in the left lower extremity. X-ray of the left knee showed no acute process. Patient was continued on Coumadin, started on Unasyn, [facility] and consult with vascular medicine and oncology. Case was discussed with vascular medicine and thought is that this is most likely a chronic DVT with possible limited or small acute process which is causing the edema and pain, unclear if this is a failure of Coumadin therapy. Vascular medicine has ordered a benefits processor for the left stump. Patient is adamant that she is unable to ambulate due to pain and swelling in the left leg. PT and OT consults added. REVIEW OF SYSTEMS Constitutional: No fever, no chills, no night sweats. No weight change. No weakness, fatigue or lethargy. No daytime sleepiness. EENT: No headache. No blurred vision or double vision, no loss of vision. No loss of Hearing, no ringing in the ears, no dizziness. No nasal drainage or congestion. No epistaxis. No sore throat. Lungs: No shortness of breath, cough, no sputum production. No wheezing. Cardiovascular: No chest pain, no lower extremity edema. No palpitations. No paroxysmal nocturnal dyspnea. No orthopnea. No lightheadedness or dizziness. No syncopal episodes. Abdominal: No abdominal pain. No nausea, vomiting. No diarrhea. No constipation. No bloody or tarry stools. No loss of appetite. Genitourinary: No dysuria, increased frequency, urgency. No urinary retention. Musculoskeletal: No myalgias. No muscle weakness, reports gait dysfunction, no frequent falls. No back pain. No neck pain. Reports left leg pain below the knee to the end of stump. Integumentary: No wounds, no lesions. No rash or pruritus. No unusual bruising. No change in hair or nails. Neurologic: No aphasia. No facial droop. No change in mentation. No head injury. No headache. No paralysis. No paresthesia. Psychiatric: No depression. No anxiety. No mood swings. Endocrine: No abnormal blood sugars. No weight change. No excessive sweating or thirst. No cold intolerance. SOCIAL HISTORY Patient is a lifelong nonsmoker, no alcohol use, no marijuana or illicit drug use. She is single/ and lives in an apartment by herself. 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 FAMILY HISTORY Mother at age 74 from complications of chemotherapy treated for colon cancer, father at age 85 from heart failure. Patient has 2 brothers and on e at age 45 from a massive heart attack and one at 74 from coronary artery disease. Patient has 3 children and one daughter has history of breast cancer at age 45 with double mastectomy. Other 2 children have no major medical problems. PHYSICAL EXAMINATION Gen: This is a 72-year-old female. She is resting in bed appears to be comfortable and in no acute distress. HEENT: Head is atraumatic, normocephalic. Pupils equal, round. Sclerae is anicteric. NECK: Supple. No JVD. No lymphadenopathy. No thyromegaly. LUNGS: Clear to auscultation. No wheezes or rhonchi. No intercostal retractions. HEART: Regular rate and rhythm. Systolic murmur. ABDOMEN: Soft. Bowel sounds are present. No masses. No tenderness. EXTREMITIES: No pedal edema to the right lower extremity. No calf tenderness. Left [id number] amputation, edema to the stump, small ulcer to the distal stump. No significant erythema or drainage. NEUROLOGICAL: Patient is awake, alert and oriented x3. Cranial nerves 2 through 12 are grossly intact. ASSESSMENT AND PLAN Left lower extremity DVT. This may be chronic or acute. Oncology consult. Vascular consult appreciated. Bottle Labeler has been ordered. No clear evidence of Coumadin failure. Patient will be continued on Coumadin therapy dosed by pharmacy. History of DVT in the left lower extremity in the setting of post total hysterectomy, unfortunately developed ALLERGIC reaction to heparin causing necrotic tissue to left lower extremity leading to amputation. Patient is on Coumadin at therapeutic dose. Small diabetic ulcer on the distal stump. Patient is on Unasyn. Vascular consult. Gait dysfunction secondary to pain and swelling in the left stump and inability to comfortably utilize prosthesis. Consult PT and OT Diabetes mellitus type 2. Patient will be continued on that form in 1000 mg twice daily, NovoLog scale before meals and at bedtime. Hypertension. Continue lisinopril 10 mg daily, propranolol 40 mg twice daily, hydrochlorothiazide 12.5 mg daily. Hyperlipidemia. Continue pravastatin 40 mg daily. Diabetic neuropathy. Continue gabapentin 300 mg 3 times daily. Chronic pain syndrome. Continue Prosperity 7.5 one every 6 hours as needed, amitriptyline 100 mg at bedtime. Recurrent depression. Continue Cymbalta 20 mg daily. Gastroesophageal reflux disease and GI prophylaxis. Continue Protonix 40 mg daily. DVT prophylaxis. Patient is therapeutic on Coumadin. CODE STATUS: Full code Patient will be admitted to the hospital for a minimum of 2 night stay. DISCHARGE PLAN To be determined. PT and OT consults. Impression and plan of care have been directed as dictated by the signing physician. Mayte Marin nurse practitioner acting as scribe for signing physician. Past Medical History Past Medical History: Diabetes Mellitus, Deep Vein Thrombosis (DVT), GERD/Reflux, Hyperlipidemia, Hypertension Additional Past Medical History / Comment(s): CHRONIC CONSTIPATION, ABD. PAIN, HX MIGRAINES, HX DVT LEG, HAS PROSTHESIS LEFT BELOW KNEE since 1997 History of Any Multi-Drug Resistant Organisms: None Reported Past Surgical History: Cholecystectomy, Hysterectomy Additional Past Surgical History / Comment(s): left BKA. colonoscopy Past Anesthesia/Blood Transfusion Reactions: No Reported Reaction Past Psychological History: Anxiety, Depression Smoking Status: Never smoker Past Alcohol Use History: None Reported Past Drug Use History: None Reported - Past Family History Mother Family Medical History: Cancer Additional Family Medical History / Comment(s): COLON Medications and Allergies Home Medications Medication Instructions Recorded Confirmed Type Enalapril [Vasotec] 5 mg PO DAILY #30 tab 03/02/15 02/26/22 Rx hydroCHLOROthiazide [Hydrodiuril] 12.5 mg PO DAILY #30 cap 03/02/15 02/26/22 Rx Amitriptyline HCl [Elavil] 100 mg PO HS #30 tablet 04/01/15 02/26/22 Rx Propranolol [Inderal] 40 mg PO BID #60 tab 04/01/15 02/26/22 Rx Pravastatin Sodium [Pravachol] 40 mg PO DAILY 06/29/18 02/26/22 History Gabapentin [Neurontin] 300 mg PO TID 12/26/18 02/26/22 History Ascorbic Acid [Vitamin C] 1,000 mg PO DAILY 02/26/22 02/26/22 History Cholecalciferol [Vitamin D3 (25 25 mcg PO DAILY 02/26/22 02/26/22 History Mcg = 1000 Iu)] DULoxetine HCL [Cymbalta] 20 mg PO DAILY 02/26/22 02/26/22 History HYDROcodone/APAP 7.5-325MG [[place] 1 tab PO Q6H PRN 02/26/22 02/26/22 History 7.5-325] Multivitamins, Thera [Multivitamin 1 tab PO DAILY 02/26/22 02/26/22 History (formulary)] Omeprazole [PriLOSEC] 40 mg PO DAILY 02/26/22 02/26/22 History Potassium Chloride [Klor-Con 10 ER] 10 meq PO DAILY 02/26/22 02/26/22 History Topiramate [Topamax] 25 mg PO BID 02/26/22 02/26/22 History Topiramate [Topamax] 100 mg PO BID 02/26/22 02/26/22 History Warfarin Sodium [Jantoven] 7.5 mg PO HS 02/26/22 02/26/22 History metFORMIN HCL [Glucophage] 1,000 mg PO BID 02/26/22 02/26/22 History Allergies Allergy/AdvReac Type Severity Reaction Status Date / Time heparin Allergy Anaphylaxis Verified 02/26/22 19:34 Physical Exam Vitals: Vital Signs Temp Pulse Pulse Resp BP BP Pulse Ox 02/27/22 02:32 97.9 F 61 18 115/64 99 02/27/22 01:23 18 02/26/22 20:48 97.7 F 73 18 155/78 98 02/26/22 20:30 98.6 F 72 18 144/73 98 02/26/22 18:00 70 18 126/70 98 02/26/22 15:42 98.6 F 82 20 151/82 97 Intake and Output 02/26/22 02/27/22 02/27/22 22:59 06:59 14:59 Other: Voiding Method Toilet # Voids 2 2 Weight 73.936 kg Results CBC & Chem 7: 02/27/22 04:48 02/27/22 04:48 Labs: Abnormal Lab Results - Last 24 Hours (Table) 02/26/22 02/26/22 Range/Units 16:26 18:28 PT 29.0 H (9.0-12.0) sec INR 2.9 H (<1.2) BUN 18 H (7-17) mg/dL Glucose 138 H (74-99) mg/dL Thrombosis Risk Factor Assmnt - Choose All That Apply Any of the Below Risk Factors Present?: Yes Each Factor Represents 1 point: Swollen legs (current) Other Risk Factors: Yes Each Risk Factor Represents 2 Points: Age 61-74 years Each Risk Factor Represents 3 Points: History of DVT/PE Other congenital or acquired thrombophilia - If yes, enter type in comment: No Thrombosis Risk Factor Assessment Total Risk Factor Score: 6 Thrombosis Risk Factor Assessment Level: High Risk
[2022-02-27 10:19] LABS: INR 2.21 (0.90-1.11)
[2022-02-27] MEDS: GABAPENTIN 300 MG CAP PO SCH ×3 (10:38→20:14)
[2022-02-27] MEDS: HYDROcodone/APAP 7.5-325MG 1 EACH TAB PO PRN ×2 (11:04→20:15)
[2022-02-27 12:01] LABS: Glucose,Whole Blood 159 mg/dL (70-110)
--- NOTE | 2022-02-27 12:18 | P.GSCN ---
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 Patient is been on Coumadin. She states that she had been having increased discomfort in her left lower extremity stump that started 3-4 days ago. She does have a history of a chronic wound there but she states that has been healed. She felt that it has had some increased swelling and warmth. She states that it is so painful that she cannot use her prosthetic to stand on. She had a venous duplex of the left lower extremity that was concerning for a DVT. The patient denies any recent change in activity or her diet. She does also believe that she has a old IVC filter in place. She is denying any shortness of breath, chest pain, abdominal pain, nausea or vomiting. She has been afebrile denies any fevers or chills. Review of Systems A 14 point review systems was completed all pertinent positives and negatives as stated in the HPI. Past Medical History Past Medical History: Diabetes Mellitus, Deep Vein Thrombosis (DVT), GERD/Reflux, Hyperlipidemia, Hypertension Additional Past Medical History / Comment(s): CHRONIC CONSTIPATION, ABD. PAIN, HX MIGRAINES, HX DVT LEG, HAS PROSTHESIS LEFT BELOW KNEE since 1997 History of Any Multi-Drug Resistant Organisms: None Reported Past Surgical History: Cholecystectomy, Hysterectomy Additional Past Surgical History / Comment(s): left BKA. colonoscopy Past Anesthesia/Blood Transfusion Reactions: No Reported Reaction Past Psychological History: Anxiety, Depression Smoking Status: Never smoker Past Alcohol Use History: None Reported Past Drug Use History: None Reported - Past Family History Mother Family Medical History: Cancer Additional Family Medical History / Comment(s): COLON Medications and Allergies Home Medications Medication Instructions Recorded Confirmed Type Enalapril [Vasotec] 5 mg PO DAILY #30 tab 03/02/15 02/26/22 Rx hydroCHLOROthiazide [Hydrodiuril] 12.5 mg PO DAILY #30 cap 03/02/15 02/26/22 Rx Amitriptyline HCl [Elavil] 100 mg PO HS #30 tablet 04/01/15 02/26/22 Rx Propranolol [Inderal] 40 mg PO BID #60 tab 04/01/15 02/26/22 Rx Pravastatin Sodium [Pravachol] 40 mg PO DAILY 06/29/18 02/26/22 History Gabapentin [Neurontin] 300 mg PO TID 12/26/18 02/26/22 History Ascorbic Acid [Vitamin C] 1,000 mg PO DAILY 02/26/22 02/26/22 History Cholecalciferol [Vitamin D3 (25 25 mcg PO DAILY 02/26/22 02/26/22 History Mcg = 1000 Iu)] DULoxetine HCL [Cymbalta] 20 mg PO DAILY 02/26/22 02/26/22 History HYDROcodone/APAP 7.5-325MG [[place] 1 tab PO Q6H PRN 02/26/22 02/26/22 History 7.5-325] Multivitamins, Thera [Multivitamin 1 tab PO DAILY 02/26/22 02/26/22 History (formulary)] Omeprazole [PriLOSEC] 40 mg PO DAILY 02/26/22 02/26/22 History Potassium Chloride [Klor-Con 10 ER] 10 meq PO DAILY 02/26/22 02/26/22 History Topiramate [Topamax] 25 mg PO BID 02/26/22 02/26/22 History Topiramate [Topamax] 100 mg PO BID 02/26/22 02/26/22 History Warfarin Sodium [Jantoven] 7.5 mg PO HS 02/26/22 02/26/22 History metFORMIN HCL [Glucophage] 1,000 mg PO BID 02/26/22 02/26/22 History Allergies Allergy/AdvReac Type Severity Reaction Status Date / Time heparin Allergy Anaphylaxis Verified 02/26/22 19:34 Surgical - Exam Vital Signs Temp Pulse Resp BP Pulse Ox 98.6 F 82 20 151/82 97 02/26/22 15:42 02/26/22 15:42 02/26/22 15:42 02/26/22 15:42 02/26/22 15:42 General appearance: The patient is alert, oriented, appears in no acute distress. HET: Head is normocephalic and atraumatic. Pupils are equal and reactive. Neck: Supple without lymphadenopathy. Trachea midline. No audible carotid bruit. Heart: S1 S2. Regular rate and rhythm. Lungs: Clear to auscultation bilaterally. Abdomen: Soft, nontender, nondistended. Extremities: Right lower extremity without any edema normal skin color and turgor. Left lower extremity BKA stump with healed wound at the distal aspect. Mild erythema and swelling. Palpable left femoral pulse Neurological: No focal deficits. Strength and sensation are grossly intact. Results - Labs 02/27/22 04:48 02/27/22 04:48 Abnormal Lab Results - Last 24 Hours (Table) 02/26/22 02/26/22 02/27/22 Range/Units 16:26 18:28 04:48 RBC 3.93 L (4.10-5.20) X 10*6/uL Hgb 11.7 L (12.0-15.0) g/dL Hct 35.1 L (37.2-46.3) % PT 29.0 H (9.0-12.0) sec INR 2.9 H (<1.2) Potassium (3.5-5.5) mmol/L BUN 18 H (7-17) mg/dL BUN/Creatinine Ratio (12.00-20.00) Ratio Glucose 138 H (74-99) mg/dL Total Protein (6.2-8.2) g/dL 02/27/22 Range/Units 04:48 RBC (4.10-5.20) X 10*6/uL Hgb (12.0-15.0) g/dL Hct (37.2-46.3) % PT (9.0-12.0) sec INR (<1.2) Potassium 3.3 L (3.5-5.5) mmol/L BUN (7-17) mg/dL BUN/Creatinine Ratio 20.25 H (12.00-20.00) Ratio Glucose 126 H (74-99) mg/dL Total Protein 5.8 L (6.2-8.2) g/dL Diabetes panel 02/26/22 02/27/22 Range/Units 16:26 04:48 Sodium 138 140 (137-145) mmol/L Potassium 3.7 3.3 L (3.5-5.1) mmol/L Chloride 101 103 (98-107) mmol/L Carbon Dioxide 26 24.9 (22-30) mmol/L BUN 18 H 16.2 (7-17) mg/dL Creatinine 0.91 0.8 (0.52-1.04) mg/dL Glucose 138 H 126 H (74-99) mg/dL Calcium 9.8 8.9 (8.4-10.2) mg/dL AST 25 26 (14-36) U/L ALT 21 21 (4-34) U/L Alkaline Phosphatase 100 82 (38-126) U/L Total Protein 7.2 5.8 L (6.3-8.2) g/dL Albumin 4.6 3.9 (3.5-5.0) g/dL Calcium panel 02/26/22 02/27/22 Range/Units 16:26 04:48 Calcium 9.8 8.9 (8.4-10.2) mg/dL Albumin 4.6 3.9 (3.5-5.0) g/dL Pituitary panel 02/26/22 02/27/22 Range/Units 16:26 04:48 Sodium 138 140 (137-145) mmol/L Potassium 3.7 3.3 L (3.5-5.1) mmol/L Chloride 101 103 (98-107) mmol/L Carbon Dioxide 26 24.9 (22-30) mmol/L BUN 18 H 16.2 (7-17) mg/dL Creatinine 0.91 0.8 (0.52-1.04) mg/dL Glucose 138 H 126 H (74-99) mg/dL Calcium 9.8 8.9 (8.4-10.2) mg/dL Adrenal panel 02/26/22 02/27/22 Range/Units 16:26 04:48 Sodium 138 140 (137-145) mmol/L Potassium 3.7 3.3 L (3.5-5.1) mmol/L Chloride 101 103 (98-107) mmol/L Carbon Dioxide 26 24.9 (22-30) mmol/L BUN 18 H 16.2 (7-17) mg/dL Creatinine 0.91 0.8 (0.52-1.04) mg/dL Glucose 138 H 126 H (74-99) mg/dL Calcium 9.8 8.9 (8.4-10.2) mg/dL Total Bilirubin 0.2 0.30 (0.2-1.3) mg/dL AST 25 26 (14-36) U/L ALT 21 21 (4-34) U/L Alkaline Phosphatase 100 82 (38-126) U/L Total Protein 7.2 5.8 L (6.3-8.2) g/dL Albumin 4.6 3.9 (3.5-5.0) g/dL - Imaging Comments: Left lower extremity venous Doppler study images and report reviewed per Dr. Christianson. Report states grayscale, color Doppler, spectral Doppler imaging performed of the deep veins of the lower extremities. There is normal flow, compressibility, vascular waveforms. Filling defects noted within the common femoral vein and proximal popliteal vein, consistent with deep venous thrombus. Positive for left lower extremity venous thrombus. Venous duplex was reviewed with Dr. Yuen. Dr. Christianson and Dr. Yuen believe it is more consistent with chronic deep vein thrombosis with possible some acute. Assessment and Plan Assessment: 1. Left lower extremity deep vein thrombosis, findings were consistent with chronic DVT 2. History of left DVT in 1997 requiring [id number] amputation on Coumadin 3. Left nqzir-[id number] amputation 4. History of nonhealing chronic wound left stump Plan: 1. Venous duplex imaging reviewed with radiologist, felt to be more consistent with a chronic DVT 2. Elevate left lower extremity, apply compression 3. 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 Recommend not using prosthetic at this time due to swelling and pain 5. Consult physical therapy 6. We will defer Anticoagulation recommendations to hematology Thank you for this consultation and allowing us take part in the plan of care of your patient. The impression and plan of care has been dictated as directed. Dr. Christianson I performed a history and examination of this patient, discussed the same with the dictator. I agree with the dictator's note ,documented as a scribe. Any additional findings or plans will be noted.
[2022-02-27] MEDS: INSULIN ASPART (NovoLOG) 100 UNIT/ML VIAL SQ SCH ×3 (12:46→21:48)
--- NOTE | 2022-02-27 13:59 | US ---
EXAMINATION TYPE: US venous doppler duplex UE LT DATE OF EXAM: 02/27/2022 COMPARISON: NONE CLINICAL HISTORY: TENDER, SWOLLEN, R/O BLOOD CLOT. Patient states the Dr said her left arm was swolle n. DVT in left leg confirmed yesterday. SIDE PERFORMED: Left Visualized portions of the left internal jugular vein, left subclavian, left axillary, left brachial, left basilic, left cephalic, left radial and ulnar veins compress and show no abnormal luminal echoe s. Visualized color Doppler shows normal flow. Left Arm: Negative for DVT IMPRESSION: No evident deep venous thrombosis within the left upper extremity as described
[2022-02-27 17:23] LABS: Glucose,Whole Blood 143 mg/dL (70-110)
[2022-02-27] MEDS: AMITRIPTYLINE HCL 50 MG TAB PO SCH (20:15)
--- NOTE | 2022-02-27 20:25 | P.CONS ---
History of Present Illness - Reason for Consult Consult date: 02/27/22 Coagulopathy,LLE DVT on warfarin Requesting physician: Jon Elena - History of Present Illness This is a 72 year old female. with history of Heparin induced thrombocytopenia, Below the Knee left lower Amputation presenting for increased erythem in amputated stump. Apparently she has been having issues with cellulitis, open wond and drainage from this area over the past few months, INR to her knowledge has been therapeutic monitored by Dr. Coker. INR on admission 2.9. Review of Systems All systems: negative Constitutional: Reports as per HPI Past Medical History Past Medical History: Diabetes Mellitus, Deep Vein Thrombosis (DVT), GERD/Reflux, Hyperlipidemia, Hypertension Additional Past Medical History / Comment(s): CHRONIC CONSTIPATION, ABD. PAIN, HX MIGRAINES, HX DVT LEG, HAS PROSTHESIS LEFT BELOW KNEE since 1997 History of Any Multi-Drug Resistant Organisms: None Reported Past Surgical History: Cholecystectomy, Hysterectomy Additional Past Surgical History / Comment(s): left BKA. colonoscopy Past Anesthesia/Blood Transfusion Reactions: No Reported Reaction Past Psychological History: Anxiety, Depression Smoking Status: Never smoker Past Alcohol Use History: None Reported Past Drug Use History: None Reported - Past Family History Mother Family Medical History: Cancer Additional Family Medical History / Comment(s): COLON Medications and Allergies Home Medications Medication Instructions Recorded Confirmed Type Enalapril [Vasotec] 5 mg PO DAILY #30 tab 03/02/15 02/26/22 Rx hydroCHLOROthiazide [Hydrodiuril] 12.5 mg PO DAILY #30 cap 03/02/15 02/26/22 Rx Amitriptyline HCl [Elavil] 100 mg PO HS #30 tablet 04/01/15 02/26/22 Rx Propranolol [Inderal] 40 mg PO BID #60 tab 04/01/15 02/26/22 Rx Pravastatin Sodium [Pravachol] 40 mg PO DAILY 06/29/18 02/26/22 History Gabapentin [Neurontin] 300 mg PO TID 12/26/18 02/26/22 History Ascorbic Acid [Vitamin C] 1,000 mg PO DAILY 02/26/22 02/26/22 History Cholecalciferol [Vitamin D3 (25 25 mcg PO DAILY 02/26/22 02/26/22 History Mcg = 1000 Iu)] DULoxetine HCL [Cymbalta] 20 mg PO DAILY 02/26/22 02/26/22 History HYDROcodone/APAP 7.5-325MG [[place] 1 tab PO Q6H PRN 02/26/22 02/26/22 History 7.5-325] Multivitamins, Thera [Multivitamin 1 tab PO DAILY 02/26/22 02/26/22 History (formulary)] Omeprazole [PriLOSEC] 40 mg PO DAILY 02/26/22 02/26/22 History Potassium Chloride [Klor-Con 10 ER] 10 meq PO DAILY 02/26/22 02/26/22 History Topiramate [Topamax] 25 mg PO BID 02/26/22 02/26/22 History Topiramate [Topamax] 100 mg PO BID 02/26/22 02/26/22 History Warfarin Sodium [Jantoven] 7.5 mg PO HS 02/26/22 02/26/22 History metFORMIN HCL [Glucophage] 1,000 mg PO BID 02/26/22 02/26/22 History Allergies Allergy/AdvReac Type Severity Reaction Status Date / Time heparin Allergy Anaphylaxis Verified 02/26/22 19:34 Physical Exam Vitals: Vital Signs Temp Pulse Pulse Resp BP BP BP 02/27/22 07:54 16 02/27/22 07:40 98.0 F 69 16 129/71 02/27/22 02:32 97.9 F 61 18 115/64 02/27/22 01:23 18 02/26/22 20:48 97.7 F 73 18 155/78 02/26/22 20:30 98.6 F 72 18 144/73 02/26/22 18:00 70 18 126/70 02/26/22 15:42 98.6 F 82 20 151/82 Pulse Ox 02/27/22 07:54 02/27/22 07:40 99 02/27/22 02:32 99 02/27/22 01:23 02/26/22 20:48 98 02/26/22 20:30 98 02/26/22 18:00 98 02/26/22 15:42 97 Intake and Output 02/26/22 02/27/22 02/27/22 22:59 06:59 14:59 Other: Voiding Method Toilet Toilet # Voids 2 2 1 Weight 73.936 kg LUE Edema - Constitutional General appearance: cooperative, no acute distress - EENT Eyes: EOMI ENT: NA/AT - Neck Neck: normal ROM - Respiratory Respiratory: bilateral: diminished - Cardiovascular Rhythm: regularly irregular leg Peripheral Edema: left: Other (Left BKA, erythema) - Gastrointestinal General gastrointestinal: normal bowel sounds, soft - Integumentary Integumentary: pale - Musculoskeletal Musculoskeletal: generalized weakness Results CBC & Chem 7: 02/27/22 04:48 02/27/22 04:48 Labs: Abnormal Lab Results - Last 24 Hours (Table) 02/26/22 02/26/22 02/27/22 Range/Units 16:26 18:28 04:48 RBC 3.93 L (4.10-5.20) X 10*6/uL Hgb 11.7 L (12.0-15.0) g/dL Hct 35.1 L (37.2-46.3) % PT 29.0 H (9.0-12.0) sec INR 2.9 H (<1.2) Potassium (3.5-5.5) mmol/L BUN 18 H (7-17) mg/dL BUN/Creatinine Ratio (12.00-20.00) Ratio Glucose 138 H (74-99) mg/dL Total Protein (6.2-8.2) g/dL 02/27/22 Range/Units 04:48 RBC (4.10-5.20) X 10*6/uL Hgb (12.0-15.0) g/dL Hct (37.2-46.3) % PT (9.0-12.0) sec INR (<1.2) Potassium 3.3 L (3.5-5.5) mmol/L BUN (7-17) mg/dL BUN/Creatinine Ratio 20.25 H (12.00-20.00) Ratio Glucose 126 H (74-99) mg/dL Total Protein 5.8 L (6.2-8.2) g/dL Assessment and Plan (1) Anticoagulated on Coumadin Current Visit: Yes Status: Acute Code(s): Z79.01 - ACTIVE DIRECTORY ADMINISTRATOR (CURRENT) USE OF ANTICOAGULANTS SNOMED Code(s): 11505758 (2) DVT (deep venous thrombosis) Narrative/Plan: History of DVT LLE, has been on warfarin and therapeutic. Last known DVT >20 years, at this time due to symptomatic and evidence of thrombus on therapeutic warfarin DOAC is recommended for ongoing anti-coagulation. Prior to switching to ELiquis will need to reverse INR, less than 1.5 to decrease risk of bleeding. WIll discontinue Warfarin and give Vitamin K tonight and recheck INR in am. Current Visit: Yes Status: Acute Code(s): I82.409 - ACUTE EMBOLISM AND THOMBOS UNSP DEEP VN UNSP LOWER EXTREMITY SNOMED Code(s): 018470003 (3) Leg pain, left Current Visit: Yes Status: Acute Code(s): M79.605 - PAIN IN LEFT LEG SNOMED Code(s): 444243761 Plan: Dr. Hernandze: I have completed the full history and physical and developed the above impression and plan, agree with dictation, dictated as a ascribe.
[2022-02-27] MEDS ORDERED: PHYTONADIONE ORAL 5 MG/5 ML ORAL.SYRG PO STA (20:30)
[2022-02-27 20:43] LABS: Glucose,Whole Blood 159 mg/dL (70-110)
[2022-02-27] MEDS ORDERED: WARFARIN 7.5 MG TAB PO ONE (21:00)
[2022-02-28 05:47] LABS: Prothrombin Time 20.5 sec (9.0-12.0)
[2022-02-28 07:39] LABS: Glucose,Whole Blood 124 mg/dL (70-110)
[2022-02-28] MEDS: INSULIN ASPART (NovoLOG) 100 UNIT/ML VIAL SQ SCH ×4 (08:01→23:01)
[2022-02-28] MEDS ORDERED: PHYTONADIONE ORAL 5 MG/5 ML ORAL.SYRG PO STA (09:35)
[2022-02-28] MEDS: AMPICILLIN-SULBACTAM 3 GM in SODIUM CHLORIDE 0.9% 100 ML IVPB SCH ×3 (10:08→23:20)
[2022-02-28] MEDS: GABAPENTIN 300 MG CAP PO SCH ×3 (10:11→20:53)
[2022-02-28] MEDS: PANTOPRAZOLE 40 MG TABLET PO SCH (10:12)
[2022-02-28] MEDS: TOPIRAMATE 25 MG TAB PO SCH ×2 (10:12→20:53)
[2022-02-28] MEDS: lisinopriL 10 MG TAB PO SCH (10:13)
[2022-02-28] MEDS: POTASSIUM CHLORIDE ER 10 MEQ TAB.ER.PRT PO SCH (10:13)
[2022-02-28] MEDS: metFORMIN 500 MG TAB PO SCH ×2 (10:13→20:53)
[2022-02-28] MEDS: ASCORBIC ACID 500 MG TAB PO SCH (10:13)
[2022-02-28] MEDS: CHOLECALCIFEROL 25 MCG (1000 IU) TABLET PO SCH (10:13)
[2022-02-28] MEDS: hydroCHLOROthiazide 12.5 MG CAP PO SCH (10:14)
[2022-02-28] MEDS: DULoxetine HCL 20 MG CAPSULE.DR PO SCH (10:14)
[2022-02-28] MEDS: TOPIRAMATE 100 MG TAB PO SCH ×2 (10:15→20:54)
[2022-02-28] MEDS: PRAVASTATIN SODIUM 40 MG TAB PO SCH (10:15)
[2022-02-28] MEDS: MULTIVITAMINS, THERA 1 EACH TAB PO SCH (10:15)
[2022-02-28] MEDS: PROPRANOLOL 40 MG TAB PO SCH ×2 (10:15→20:54)
[2022-02-28] MEDS: HYDROcodone/APAP 7.5-325MG 1 EACH TAB PO PRN ×2 (10:21→21:00)
[2022-02-28 12:45] LABS: Glucose,Whole Blood 138 mg/dL (70-110)
[2022-02-28] MEDS: FUROSEMIDE 20 MG TAB PO SCH (13:05)
--- NOTE | 2022-02-28 13:46 | P.PN ---
Subjective Progress Note Date: 02/28/22 HISTORY OF PRESENT ILLNESS This is a 72-year-old female patient with past medical history of diabetes mellitus type 2, hypertension, hyperlipidemia, gastroesophageal reflux disease, recurrent depression, history of DVT, occurred following total hysterectomy surgery, in the left lower extremity with ALLERGIC reaction to heparin leading to necrotic tissue and below the knee amputation on the left approximate 20 years ago. Patient has been on Coumadin for the entire time and has been instructed to be on Coumadin for life. She believes there may be an issue that she does not have insurance coverage for some of the newer agents. Patient gives history that for the past 3 days she has had difficulty walking due to pain in her left leg below the knee towards the stump. She states she's had increased edema to the area. She has a very small ulcer to the end of the stump. Patient was found to be afebrile, heart rate 82, blood pressure 151/82, pulse ox 97% on room air. CBC was within normal limits. INR 2.9. BUN 18 and creatinine 0.91. Blood sugar 138. Ultrasound revealed DVT in the left lower extremity. X-ray of the left knee showed no acute process. Patient was continued on Coumadin, started on Unasyn, admitted to the [facility] floor and consult with vascular medicine and oncology. Case was discussed with vascular medicine and thought is that this is most likely a chronic DVT with possible limited or small acute process which is causing the edema and pain, un clear if this is a failure of Coumadin therapy. Vascular medicine has ordered a child support officer for the left stump. Patient is adamant that she is unable to ambulate due to pain and swelling in the left leg. PT and OT consults added. 02/28, patient is having some lower extremity swelling, right as well as the left wrist stump, no significant pain there, patient's on lisinopril, which we will decrease, to 5 mg, to allow additional diuresing, Lasix 20 mg to be started, and discontinue [place] Diuril, patient's venous Dopplers negative for DVT, patient is not allowed to resume the liner for her stump left side. Recommendations from oncology, is to reverse INR vit k, for Coumadin, overlap in start on factor X a inhibition, eliquis INR today 2.0. Additional test, betamicroglobulin is elevated, 2.9 REVIEW OF SYSTEMS Constitutional: No fever, no chills, no night sweats. No weight change. No weakness, fatigue or lethargy. No daytime sleepiness. EENT: No headache. No blurred vision or double vision, no loss of vision. No loss of Hearing, no ringing in the ears, no dizziness. No nasal drainage or congestion. No epistaxis. No sore throat. Lungs: No shortness of breath, cough, no sputum production. No wheezing. Cardiovascular: No chest pain, no lower extremity edema. No palpitations. No paroxysmal nocturnal dyspnea. No orthopnea. No lightheadedness or dizziness. No syncopal episodes. Abdominal: No abdominal pain. No nausea, vomiting. No diarrhea. No constipation. No bloody or tarry stools. No loss of appetite. Genitourinary: No dysuria, increased frequency, urgency. No urinary retention. Musculoskeletal: No myalgias. No muscle weakness, reports gait dysfunction, no frequent falls. No back pain. No neck pain. Reports left leg pain below the knee to the end of stump. Integumentary: No wounds, no lesions. No rash or pruritus. No unusual bruising. No change in hair or nails. Neurologic: No aphasia. No facial droop. No change in mentation. No head injury. No headache. No paralysis. No paresthesia. Psychiatric: No depression. No anxiety. No mood swings. Endocrine: No abnormal blood sugars. No weight change. No excessive sweating or thirst. No cold intolerance. PHYSICAL EXAMINATION Gen: This is a 72-year-old female. She is resting in bed appears to be comfortable and in no acute distress. HEENT: Head is atraumatic, normocephalic. Pupils equal, round. Sclerae is anicteric. NECK: Supple. No JVD. No lymphadenopathy. No thyromegaly. LUNGS: Clear to auscultation. No wheezes or rhonchi. No intercostal retractions. HEART: Regular rate and rhythm. Systolic murmur. ABDOMEN: Soft. Bowel sounds are present. No masses. No tenderness. EXTREMITIES: No pedal edema to the right lower extremity. No calf tenderness. Left [id number] amputation, edema to the stump, small ulcer to the distal stump. No significant erythema or drainage. NEUROLOGICAL: Patient is awake, alert and oriented x3. Cranial nerves 2 through 12 are grossly intact. ASSESSMENT AND PLAN Left lower extremity DVT. This may be chronic not acute, with post pubic syndrome, edema,. Oncology consult. Vascular consult appreciated. Prize Coordinator has been ordered not checked allowed to resume its use. No clear evidence of Coumadin failure. Patient will be continued on Coumadin therapy dosed by pharmacy. Discontinued Coumadin, with reversal requiring vitamin K as recommen dation from oncology, and eLIQUIS will be started as per oncology Furosemide 20 mg daily, discontinue hydrochlorothiazide History of DVT in the left lower extremity in the setting of post total hyst erectomy, unfortunately developed ALLERGIC reaction to heparin causing necrotic tissue to left lower extremity leading to amputation. Patient is on Coumadin at therapeutic dose. Small diabetic ulcer on the distal stump. Patient is on Unasyn. Vascular consult. Gait dysfunction secondary to pain and swelling in the left stump and inability to comfortably utilize prosthesis. Consult PT and OT Diabetes mellitus type 2. Patient will be continued on that form in 1000 mg twice daily, NovoLog scale before meals and at bedtime. Hypertension. Continue lisinopril 10 mg daily, propranolol 40 mg twice daily, hydrochlorothiazide 12.5 mg daily. Hyperlipidemia. Continue pravastatin 40 mg daily. Diabetic neuropathy. Continue gabapentin 300 mg 3 times daily. Chronic pain syndrome. Continue [place] 7.5 one every 6 hours as needed, amitriptyline 100 mg at bedtime. Recurrent depression. Continue Cymbalta 20 mg daily. Gastroesophageal reflux disease and GI prophylaxis. Continue Protonix 40 mg daily. DVT prophylaxis. Patient is therapeutic on Coumadin. Reversed, and bridged to factor X a inhibition, eliquis CODE STATUS: Full code Patient will be admitted to the hospital for a minimum of 2 night stay. DISCHARGE PLAN To be determined. PT and OT consults. Objective - Vital Signs Vital signs: Vital Signs Temp 98.1 F 02/28/22 07:36 Pulse 66 02/28/22 07:36 Resp 17 02/28/22 07:36 BP 103/64 02/28/22 07:36 Pulse Ox 97 02/28/22 07:36 FiO2 Intake & Output 02/27/22 02/28/22 02/28/22 18:59 06:59 18:59 Intake Total 218 180 Balance 218 180 Intake: Oral 218 180 Other: Voiding Method Toilet Toilet Toilet # Voids 1 1 - Labs CBC & Chem 7: 02/27/22 04:48 02/27/22 04:48 Labs: Abnormal Lab Results - Last 24 Hours (Table) 02/27/22 02/27/22 02/28/22 Range/Units 17:21 20:41 05:06 PT 20.5 H (9.0-12.0) sec INR 2.0 H (<1.2) POC Glucose (mg/dL) 143 H 159 H (70-110) mg/dL Sgyo-9-[id number] (0.61-2.37) mg/L 02/28/22 02/28/22 02/28/22 Range/Units 05:06 07:37 12:44 PT (9.0-12.0) sec INR (<1.2) POC Glucose (mg/dL) 124 H 138 H (70-110) mg/dL Beie-0-Ujfgvcwcbnpay 2.90 H (0.61-2.37) mg/L
[2022-02-28 16:16] LABS: INR 1.4 (<1.2); Prothrombin Time 14.8 sec (9.0-12.0)
[2022-02-28 17:15] LABS: Glucose,Whole Blood 112 mg/dL (70-110)
[2022-02-28] MEDS: AMITRIPTYLINE HCL 50 MG TAB PO SCH (20:53)
[2022-02-28 21:39] LABS: Glucose,Whole Blood 165 mg/dL (70-110)
[2022-03-01 06:03] LABS: INR 1.2 (<1.2); Prothrombin Time 12.9 sec (9.0-12.0)
[2022-03-01 08:09] LABS: Glucose,Whole Blood 120 mg/dL (70-110)
[2022-03-01] MEDS: INSULIN ASPART (NovoLOG) 100 UNIT/ML VIAL SQ SCH ×4 (08:18→20:41)
[2022-03-01] MEDS: AMPICILLIN-SULBACTAM 3 GM in SODIUM CHLORIDE 0.9% 100 ML IVPB SCH ×2 (09:38→16:38)
[2022-03-01] MEDS: metFORMIN 500 MG TAB PO SCH ×2 (09:40→20:39)
[2022-03-01] MEDS: ASCORBIC ACID 500 MG TAB PO SCH (09:40)
[2022-03-01] MEDS: MULTIVITAMINS, THERA 1 EACH TAB PO SCH (09:40)
[2022-03-01] MEDS: FUROSEMIDE 20 MG TAB PO SCH (09:40)
[2022-03-01] MEDS: GABAPENTIN 300 MG CAP PO SCH ×3 (09:40→20:39)
[2022-03-01] MEDS: CHOLECALCIFEROL 25 MCG (1000 IU) TABLET PO SCH (09:40)
[2022-03-01] MEDS: POTASSIUM CHLORIDE ER 10 MEQ TAB.ER.PRT PO SCH (09:40)
[2022-03-01] MEDS: PANTOPRAZOLE 40 MG TABLET PO SCH (09:40)
[2022-03-01] MEDS: PROPRANOLOL 40 MG TAB PO SCH ×2 (09:41→20:42)
[2022-03-01] MEDS: DULoxetine HCL 20 MG CAPSULE.DR PO SCH (09:41)
[2022-03-01] MEDS: TOPIRAMATE 100 MG TAB PO SCH ×2 (09:41→20:42)
[2022-03-01] MEDS: PRAVASTATIN SODIUM 40 MG TAB PO SCH (09:42)
[2022-03-01] MEDS: lisinopriL 5 MG TAB PO SCH (09:47)
[2022-03-01] MEDS: HYDROcodone/APAP 7.5-325MG 1 EACH TAB PO PRN ×2 (09:51→20:52)
[2022-03-01] MEDS: TOPIRAMATE 25 MG TAB PO SCH ×2 (10:53→20:42)
[2022-03-01 12:16] LABS: Glucose,Whole Blood 108 mg/dL (70-110)
--- NOTE | 2022-03-01 12:19 | P.PN ---
Subjective Progress Note Date: 03/01/22 Principal diagnosis: Acute LLE (in BKA) DVT INR has been reversed 1.2 today, Eliquis ordered Objective - Vital Signs Vital signs: Vital Signs Temp 98.1 F 03/01/22 11:22 Pulse 69 03/01/22 11:22 Resp 18 03/01/22 11:22 BP 143/73 03/01/22 11:22 Pulse Ox 98 03/01/22 11:22 FiO2 Intake & Output 02/28/22 03/01/22 03/01/22 18:59 06:59 18:59 Intake Total 280 500 Balance 280 500 Intake: Intake, IV Titration 100 Amount Ampicillin-Sulbactam 3 gm 100 In Sodium Chloride 0.9% 100 ml @ 200 mls/hr IVPB Q8HR DEANDRE Rx#:[id number] Oral 180 500 Other: Voiding Method Toilet Toilet # Voids 2 2 - Exam LUE Edema - Constitutional General appearance: cooperative, no acute distress - EENT Eyes: EOMI ENT: NA/AT - Neck Neck: normal ROM - Respiratory Respiratory: bilateral: diminished - Cardiovascular Rhythm: regularly irregular leg Peripheral Edema: left: Other (Left BKA, erythema) - Gastrointestinal General gastrointestinal: normal bowel sounds, soft - Integumentary Integumentary: pale - Musculoskeletal Musculoskeletal: generalized weakness - Labs CBC & Chem 7: 02/27/22 04:48 02/27/22 04:48 Labs: Abnormal Lab Results - Last 24 Hours (Table) 02/28/22 02/28/22 02/28/22 Range/Units 12:44 15:21 17:14 PT 14.8 H (9.0-12.0) sec INR 1.4 H (<1.2) POC Glucose (mg/dL) 138 H 112 H (70-110) mg/dL 02/28/22 03/01/22 03/01/22 Range/Units 21:38 04:52 08:06 PT 12.9 H (9.0-12.0) sec INR 1.2 H (<1.2) POC Glucose (mg/dL) 165 H 120 H (70-110) mg/dL Assessment and Plan (1) Anticoagulated on Coumadin Current Visit: Yes Status: Acute Code(s): Z79.01 - DETENTION (CURRENT) USE OF ANTICOAGULANTS SNOMED Code(s): 75924255 (2) DVT (deep venous thrombosis) Narrative/Plan: History of DVT LLE, has been on warfarin and therapeutic. Last known DVT >20 years, at this time due to symptomatic and evidence of thrombus on therapeutic warfarin DOAC is recommended for ongoing anti-coagulation. INR has been decreased to less than 1.5 and Eliquis initiation today. WIll send script to our pharmacy to check coverage prior to discharge Current Visit: Yes Status: Acute Code(s): I82.409 - ACUTE EMBOLISM AND THOMBOS UNSP DEEP VN UNSP LOWER EXTREMITY SNOMED Code(s): 167775317 (3) Leg pain, left Current Visit: Yes Status: Acute Code(s): M79.605 - PAIN IN LEFT LEG SNOMED Code(s): 841138976
[2022-03-01] MEDS: APIXABAN 5 MG TAB PO SCH ×2 (13:05→20:40)
--- NOTE | 2022-03-01 15:31 | P.PN ---
Subjective Progress Note Date: 03/01/22 HISTORY OF PRESENT ILLNESS This is a 72-year-old female patient with past medical history of diabetes mellitus type 2, hypertension, hyperlipidemia, gastroesophageal reflux disease, recurrent depression, history of DVT, occurred following total hysterectomy surgery, in the left lower extremity with ALLERGIC reaction to heparin leading to necrotic tissue and below the knee amputation on the left approximate 20 years ago. Patient has been on Coumadin for the entire time and has been instructed to be on Coumadin for life. She believes there may be an issue that she does not have insurance coverage for some of the newer agents. Patient gives history that for the past 3 days she has had difficulty walking due to pain in her left leg below the knee towards the stump. She states she's had increased edema to the area. She has a very small ulcer to the end of the stump. Patient was found to be afebrile, heart rate 82, blood pressure 151/82, pulse ox 97% on room air. CBC was within normal limits. INR 2.9. BUN 18 and creatinine 0.91. Blood sugar 138. Ultrasound revealed DVT in the left lower extremity. X-ray of the left knee showed no acute process. Patient was continued on Coumadin, started on Unasyn, admitted to the [facility] floor and consult with vascular medicine and oncology. Case was discussed with vascular medicine and thought is that this is most likely a chronic DVT with possible limited or small acute process which is causing the edema and pain, un clear if this is a failure of Coumadin therapy. Vascular medicine has ordered a unit tender for the left stump. Patient is adamant that she is unable to ambulate due to pain and swelling in the left leg. PT and OT consults added. 02/28, patient is having some lower extremity swelling, right as well as the left wrist stump, no significant pain there, patient's on lisinopril, which we will decrease, to 5 mg, to allow additional diuresing, Lasix 20 mg to be started, and discontinue [place] Diuril, patient's venous Dopplers negative for DVT, patient is not allowed to resume the liner for her stump left side. Recommendations from oncology, is to reverse INR vit k, for Coumadin, overlap in start on factor X a inhibition, eliquis INR today 2.0. Additional test, betamicroglobulin is elevated, 2.9 03/01, patient has less swelling, still on IV antibiotic, less redness on the scar tissue on the left stump, patient's INR is 1.2," restarted 10 mg twice a day per recommendation from oncology, PT OT has seen the patient, recommended subacute rehab, however her endurance might be better at this time for inpatient rehabilitation, we will consult Dr. Centeno, might qualify for inpatient rehab otherwise [facility] is preferred. Discharge planning, most likely in the next 24 hours REVIEW OF SYSTEMS Constitutional: No fever, no chills, no night sweats. No weight change. No w eakness, fatigue or lethargy. No daytime sleepiness. EENT: No headache. No blurred vision or double vision, no loss of vision. No loss of Hearing, no ringing in the ears, no dizziness. No nasal drainage or congestion. No epistaxis. No sore throat. Lungs: No shortness of breath, cough, no sputum production. No wheezing. Cardiovascular: No chest pain, no lower extremity edema. No palpitations. No paroxysmal nocturnal dyspnea. No orthopnea. No lightheadedness or dizziness. No syncopal episodes. Abdominal: No abdominal pain. No nausea, vomiting. No diarrhea. No constipation. No bloody or tarry stools. No loss of appetite. Genitourinary: No dysuria, increased frequency, urgency. No urinary retention. Musculoskeletal: No myalgias. No muscle weakness, reports gait dysfunction, no frequent falls. No back pain. No neck pain. Reports left leg pain below the knee to the end of stump. Integumentary: No wounds, no lesions. No rash or pruritus. No unusual bruising. No change in hair or nails. Neurologic: No aphasia. No facial droop. No change in mentation. No head injury. No headache. No paralysis. No paresthesia. Psychiatric: No depression. No anxiety. No mood swings. Endocrine: No abnormal blood sugars. No weight change. No excessive sweating or thirst. No cold intolerance. PHYSICAL EXAMINATION Gen: This is a 72-year-old female. She is resting in bed appears to be comfortable and in no acute distress. HEENT: Head is atraumatic, normocephalic. Pupils equal, round. Sclerae is anicteric. NECK: Supple. No JVD. No lymphadenopathy. No thyromegaly. LUNGS: Clear to auscultation. No wheezes or rhonchi. No intercostal retractions. HEART: Regular rate and rhythm. Systolic murmur. ABDOMEN: Soft. Bowel sounds are present. No masses. No tenderness. EXTREMITIES: No pedal edema to the right lower extremity. No calf tenderness. Left [id number] amputation, edema to the stump, small ulcer to the distal s tump. No significant erythema or drainage. NEUROLOGICAL: Patient is awake, alert and oriented x3. Cranial nerves 2 through 12 are grossly intact. ASSESSMENT AND PLAN Left lower extremity DVT. This may be chronic not acute, with post pubic syndrome, edema,. Oncology consult. Vascular consult appreciated. Engineering Aide has been ordered not checked allowed to resume its use. No clear evidence of Coumadin failure. Patient will be continued on Coumadin therapy dosed by taryn caro. Discontinued Coumadin, with reversal requiring vitamin K as recommendation from oncology, and eLIQUIS will be started as per oncology Furosemide 20 mg daily, discontinue hydrochlorothiazide History of DVT in the left lower extremity in the setting of post total hysterectomy, unfortunately developed ALLERGIC reaction to heparin causing necrotic tissue to left lower extremity leading to amputation. Patient is on Coumadin at therapeutic dose. Small diabetic ulcer on the distal stump. Patient is on Unasyn. Vascular consult. Gait dysfunction secondary to pain and swelling in the left stump and inability to comfortably utilize prosthesis. Consult PT and OT Diabetes mellitus type 2. Patient will be continued on that form in 1000 mg twice daily, NovoLog scale before meals and at bedtime. Hypertension. Continue lisinopril 10 mg daily, propranolol 40 mg twice daily, hydrochlorothiazide 12.5 mg daily. Hyperlipidemia. Continue pravastatin 40 mg daily. Diabetic neuropathy. Continue gabapentin 300 mg 3 times daily. Chronic pain syndrome. Continue [place] 7.5 one every 6 hours as needed, amitriptyline 100 mg at bedtime. Recurrent depression. Continue Cymbalta 20 mg daily. Gastroesophageal reflux disease and GI prophylaxis. Continue Protonix 40 mg daily. DVT prophylaxis. Patient is therapeutic on Coumadin. Reversed, and bridged to factor X a inhibition, eliquis CODE STATUS: Full code Patient will be admitted to the hospital for a minimum of 2 night stay. DISCHARGE PLAN To be determined. PT and OT consults. Patient might have the endurance for inpatient rehab, consult with Dr. Anthony, otherwise [facility] preferred Current Medications Hydrocodone Bitart/Acetaminophen (Hydrocodone/Apap 7.5-325mg 1 Each Tab) 1 each PO Q6H PRN PRN Reason: Pain Last Admin: 03/01/22 09:51 Dose: 1 each Amitriptyline HCl (Amitriptyline Hcl 50 Mg Tab) 100 mg PO HS [facility] Last Admin: 02/28/22 20:53 Dose: 100 mg Apixaban (Apixaban 5 Mg Tab) 10 mg PO BID DEANDRE; Protocol Stop: 03/07/22 21:01 Last Admin: 03/01/22 13:05 Dose: 10 mg Ascorbic Acid (Ascorbic Acid 500 Mg Tab) 1,000 mg PO DAILY DEANDRE Last Admin: 03/01/22 09:40 Dose: 1,000 mg Cholecalciferol (Cholecalciferol 25 Mcg (1000 Iu) Tablet) 25 mcg PO DAILY DEANDRE Last Admin: 03/01/22 09:40 Dose: 25 mcg Duloxetine HCl (Duloxetine Hcl 20 Mg Capsule.) 20 mg PO DAILY DEANDRE Last Admin: 03/01/22 09:41 Dose: 20 mg Furosemide (Furosemide 20 Mg Tab) 20 mg PO DAILY DEANDRE Last Admin: 03/01/22 09:40 Dose: 20 mg Gabapentin (Gabapentin 300 Mg Cap) 300 mg PO TID DEANDRE Last Admin: 03/01/22 09:40 Dose: 300 mg Ampicillin Sodium/Sulbactam (Sodium 3 gm/ Sodium Chloride) 100 mls @ 200 mls/hr IVPB Q8HR DEANDRE; Protocol Last Admin: 03/01/22 09:38 Dose: 200 mls/hr Insulin Aspart (Insulin Aspart (Novolog) 100 Unit/Ml Vial) 0 unit SQ ACHS DEANDRE; Protocol Last Admin: 03/01/22 12:52 Dose: Not Given Lisinopril (Lisinopril 5 Mg Tab) 5 mg PO DAILY DEANDRE Last Admin: 03/01/22 09:47 Dose: 5 mg Metformin HCl (Metformin 500 Mg Tab) 1,000 mg PO BID DEANDRE Last Admin: 03/01/22 09:40 Dose: 1,000 mg Multivitamins (Multivitamins, Thera 1 Each Tab) 1 each PO DAILY DEANDRE Last Admin: 03/01/22 09:40 Dose: 1 each Naloxone HCl (Naloxone 0.4 Mg/Ml 1 Ml Vial) 0.2 mg IV Q2M PRN PRN Reason: Opioid Reversal Pantoprazole Sodium (Pantoprazole 40 Mg Tablet) 40 mg PO DAILY [facility] Last Admin: 03/01/22 09:40 Dose: 40 mg Potassium Chloride (Potassium Chloride Er 10 Meq Tab.Er.Prt) 10 meq PO DAILY [facility] Last Admin: 03/01/22 09:40 Dose: 10 meq Pravastatin Sodium (Pravastatin Sodium 40 Mg Tab) 40 mg PO DAILY [facility] Last Admin: 03/01/22 09:42 Dose: 40 mg Propranolol HCl (Propranolol 40 Mg Tab) 40 mg PO BID [facility] Last Admin: 03/01/22 09:41 Dose: 40 mg Topiramate (Topiramate 25 Mg Tab) 25 mg PO BID [facility] Last Admin: 03/01/22 10:53 Dose: 25 mg Topiramate (Topiramate 100 Mg Tab) 100 mg PO BID [facility] Last Admin: 03/01/22 09:41 Dose: 100 mg Laboratory Results - Last 24 Hours 02/28/22 02/28/22 02/28/22 15:21 17:14 21:38 PT 14.8 H INR 1.4 H POC Glucose (mg/dL) 112 H 165 H POC Glu Sander Setter ID PaulaJosh severinotrentonfuentes LoredohtGail randhawa 03/01/22 03/01/22 03/01/22 04:52 08:06 12:10 PT 12.9 H INR 1.2 H POC Glucose (mg/dL) 120 H 108 POC Glu Sander Setter ID Karin Gooden Carol Vital Signs - 8 hr 03/01/22 11:22 Temperature 98.1 F Pulse Rate [ 69 Pulse Oximetery ] Respiratory 18 Rate Blood Pressure 143/73 [Left Arm] O2 Sat by Pulse 98 Oximetry Objective - Vital Signs Vital signs: Vital Signs Temp 98.1 F 03/01/22 11:22 Pulse 69 03/01/22 11:22 Resp 18 03/01/22 11:22 BP 143/73 03/01/22 11:22 Pulse Ox 98 03/01/22 11:22 FiO2 Intake & Output 02/28/22 03/01/22 03/01/22 18:59 06:59 18:59 Intake Total 280 500 Balance 280 500 Intake: Intake, IV Titration 100 Amount Ampicillin-Sulbactam 3 gm 100 In Sodium Chloride 0.9% 100 ml @ 200 mls/hr IVPB Q8HR [facility] Rx#:[id number] Oral 180 500 Other: Voiding Method Toilet Toilet Toilet # Voids 2 2 - Labs CBC & Chem 7: 02/27/22 04:48 02/27/22 04:48 Labs: Abnormal Lab Results - Last 24 Hours (Table) 02/28/22 02/28/22 02/28/22 Range/Units 15:21 17:14 21:38 PT 14.8 H (9.0-12.0) sec INR 1.4 H (<1.2) POC Glucose (mg/dL) 112 H 165 H (70-110) mg/dL 03/01/22 03/01/22 Range/Units 04:52 08:06 PT 12.9 H (9.0-12.0) sec INR 1.2 H (<1.2) POC Glucose (mg/dL) 120 H (70-110) mg/dL
[2022-03-01 17:11] LABS: Glucose,Whole Blood 104 mg/dL (70-110)
[2022-03-01 20:12] LABS: Glucose,Whole Blood 146 mg/dL (70-110)
[2022-03-01] MEDS: AMITRIPTYLINE HCL 50 MG TAB PO SCH (20:39)
[2022-03-02] MEDS: AMPICILLIN-SULBACTAM 3 GM in SODIUM CHLORIDE 0.9% 100 ML IVPB SCH ×2 (00:58→07:44)
--- NOTE | 2022-03-02 05:41 | P.CONS ---
History of Present Illness - Chief Complaint Walking difficulty - History of Present Illness I had the opportunity to see patient for inpatient rehab consultation with regard to walking difficulty. Patient admitted to [facility] February 26 history of left BKA and stump pain with purulent discharge and chronic left leg DVT. Left knee x-ray done and negative. Venous Doppler positive for left leg DVT. Negati ve for left arm DVT. Seen by Dr. Elena for medical. Seen by Dr. Christianson for the DVT. Conservative treatment. Seen by infectious disease. Has started therapy. PT reports supervision to minimal assistance for transfer and minimal assistance for gait 8 feet with roller walker. OT reports independent with feeding, grooming, upper dressing and supervision for lower dressing, bathing, toileting and functional mobility/transfers. Previous functional history as elicited from patient: 72-year-old right-handed white female who is single lives in a first-floor apartment alone. Retired. Describes independent with own cooking, laundry, driving, sitting shower and gait with left BK prosthesis. PCP Dr. Elena. Denies tobacco or alcohol. Review of Systems Review of systems: ENT: Denies sneezes or discharge. Eyes: Denies discharge or photophobia. Cardiac: Denies chest pain or palpitation. Pulmonary: Denies cough or shortness of breath. Breast: Denies discharge or lumps. Gastrointestinal: Denies nausea, emesis, constipation, diarrhea. Genitourinary: Denies discharge or frequency. Musculoskeletal: Much improved stump pain. Neurologic: Denies motor or sensory change. Endocrine: Denies shakes or sweats. Oncology: Denies cancers. Dermatologic: Denies rash, itching, pruritus. ALLERGY/immunology: Denies sneezes, rashes. Past Medical History Past Medical History: Diabetes Mellitus, Deep Vein Thrombosis (DVT), GERD/Reflux, Hyperlipidemia, Hypertension Additional Past Medical History / Comment(s): CHRONIC CONSTIPATION, ABD. PAIN, HX MIGRAINES, HX DVT LEG, HAS PROSTHESIS LEFT BELOW KNEE since 1997 History of Any Multi-Drug Resistant Organisms: None Reported Past Surgical History: Cholecystectomy, Hysterectomy Additional Past Surgical History / Comment(s): left BKA. colonoscopy Past Anesthesia/Blood Transfusion Reactions: No Reported Reaction Past Psychological History: Anxiety, Depression Smoking Status: Never smoker Past Alcohol Use History: None Reported Past Drug Use History: None Reported - Past Family History Mother Family Medical History: Cancer Additional Family Medical History / Comment(s): COLON Medications and Allergies Home Medications Medication Instructions Recorded Confirmed Type Enalapril [Vasotec] 5 mg PO DAILY #30 tab 03/02/15 02/26/22 Rx hydroCHLOROthiazide [Hydrodiuril] 12.5 mg PO DAILY #30 cap 03/02/15 02/26/22 Rx Amitriptyline HCl [Elavil] 100 mg PO HS #30 tablet 04/01/15 02/26/22 Rx Propranolol [Inderal] 40 mg PO BID #60 tab 04/01/15 02/26/22 Rx Pravastatin Sodium [Pravachol] 40 mg PO DAILY 06/29/18 02/26/22 History Gabapentin [Neurontin] 300 mg PO TID 12/26/18 02/26/22 History Ascorbic Acid [Vitamin C] 1,000 mg PO DAILY 02/26/22 02/26/22 History Cholecalciferol [Vitamin D3 (25 25 mcg PO DAILY 02/26/22 02/26/22 History Mcg = 1000 Iu)] DULoxetine HCL [Cymbalta] 20 mg PO DAILY 02/26/22 02/26/22 History HYDROcodone/APAP 7.5-325MG [[place] 1 tab PO Q6H PRN 02/26/22 02/26/22 History 7.5-325] Multivitamins, Thera [Multivitamin 1 tab PO DAILY 02/26/22 02/26/22 History (formulary)] Omeprazole [PriLOSEC] 40 mg PO DAILY 02/26/22 02/26/22 History Potassium Chloride [Klor-Con 10 ER] 10 meq PO DAILY 02/26/22 02/26/22 History Topiramate [Topamax] 25 mg PO BID 02/26/22 02/26/22 History Topiramate [Topamax] 100 mg PO BID 02/26/22 02/26/22 History Warfarin Sodium [Jantoven] 7.5 mg PO HS 02/26/22 02/26/22 History metFORMIN HCL [Glucophage] 1,000 mg PO BID 02/26/22 02/26/22 History Allergies Allergy/AdvReac Type Severity Reaction Status Date / Time heparin Allergy Anaphylaxis Verified 02/26/22 19:34 Physical Exam Vitals: Vital Signs Temp Pulse Resp BP Pulse Ox 03/02/22 02:00 98.2 F 67 18 149/72 95 03/01/22 20:00 98.3 F 68 18 113/67 99 03/01/22 11:22 98.1 F 69 18 143/73 98 Intake and Output 03/01/22 03/01/22 03/02/22 14:59 22:59 06:59 Intake Total 200 Balance 200 Intake: Oral 200 Other: Voiding Method Toilet Toilet # Voids 1 2 3 # Bowel Movements 1 Skin: Atrophic, intact. General: Medium build and comfortable appearance. Head: Normocephalic, atraumatic. Eyes: Symmetric. Pupils equal round. Ears: Symmetric. Hearing within normal limits. Mouth: Clear. Neck: Supple. Carotid without bruit. Cardiac: Regular rate and rhythm. Lungs: Clear anteriorly and posteriorly. Abdomen: Soft active nontender. Extremities: Normal tone. Left BKA stump well-healed and without redness or discharge. Neurological: Mental status: Alert, cooperative, pleasant. Cranial nerves: Symmetric facial tone and trapezius. Motor: Normal strength and isolation all 4 limbs. Sensation: Intact throughout. DTRs: Symmetric and equal throughout. Mobility: Did not attempt to sit or stand this early a.m. Results CBC & Chem 7: 02/27/22 04:48 02/27/22 04:48 Labs: Abnormal Lab Results - Last 24 Hours (Table) 03/01/22 03/01/22 03/01/22 Range/Units 04:52 08:06 20:07 PT 12.9 H (9.0-12.0) sec INR 1.2 H (<1.2) POC Glucose (mg/dL) 120 H 146 H (70-110) mg/dL Assessment and Plan (1) DVT (deep venous thrombosis) Current Visit: Yes Status: Acute Code(s): I82.409 - ACUTE EMBOLISM AND THOMBOS UNSP DEEP VN UNSP LOWER EXTREMITY SNOMED Code(s): 770092822 (2) Leg pain, left Current Visit: Yes Status: Acute Code(s): M79.605 - PAIN IN LEFT LEG SNOMED Code(s): 857654289 Plan: Comments and plan: The patient's left BKA is really 20 years old. Unsure the patient has rehab diagnosis that would qualify per insurance criteria. We will investigate. Also note OT has patient independent to supervision, there is no physical assist. Insurance most likely also have requirement of multidisciplinary team approach, i.e. physical assistance needs for more than 1 therapy. So may not qualify for this reason as well.
[2022-03-02 06:50] LABS: Glucose,Whole Blood 125 mg/dL (70-110)
[2022-03-02 07:03] LABS: INR 1.1 (<1.2); Prothrombin Time 12.2 sec (9.0-12.0)
[2022-03-02] MEDS: INSULIN ASPART (NovoLOG) 100 UNIT/ML VIAL SQ SCH ×2 (07:05→12:26)
[2022-03-02] MEDS: PANTOPRAZOLE 40 MG TABLET PO SCH (07:46)
[2022-03-02] MEDS: APIXABAN 5 MG TAB PO SCH (07:46)
[2022-03-02] MEDS: POTASSIUM CHLORIDE ER 10 MEQ TAB.ER.PRT PO SCH (07:46)
[2022-03-02] MEDS: GABAPENTIN 300 MG CAP PO SCH (07:46)
[2022-03-02] MEDS: ASCORBIC ACID 500 MG TAB PO SCH (07:46)
[2022-03-02] MEDS: FUROSEMIDE 20 MG TAB PO SCH (07:46)
[2022-03-02] MEDS: lisinopriL 5 MG TAB PO SCH (07:47)
[2022-03-02] MEDS: CHOLECALCIFEROL 25 MCG (1000 IU) TABLET PO SCH (07:47)
[2022-03-02] MEDS: DULoxetine HCL 20 MG CAPSULE.DR PO SCH (07:47)
[2022-03-02] MEDS: PROPRANOLOL 40 MG TAB PO SCH (07:47)
[2022-03-02] MEDS: metFORMIN 500 MG TAB PO SCH (07:47)
[2022-03-02] MEDS: MULTIVITAMINS, THERA 1 EACH TAB PO SCH (07:47)
[2022-03-02] MEDS: PRAVASTATIN SODIUM 40 MG TAB PO SCH (07:47)
[2022-03-02] MEDS: TOPIRAMATE 100 MG TAB PO SCH (07:48)
[2022-03-02] MEDS: TOPIRAMATE 25 MG TAB PO SCH (07:48)
[2022-03-02 09:37] LABS: Basophils % (A) 1 %; Eosinophils # (A) 0.2 k/uL (0-0.7); Eosinophils % (A) 3 %; HCT 34.5 % (34.0-46.0); HGB 11.9 gm/dL (11.4-16.0); Lymphocytes % (A) 33 %; MCH 32.1 pg (25.0-35.0); MCHC 34.5 g/dL (31.0-37.0); MCV 93.1 fL (80.0-100.0); Mean Platelet Volume 9.1; Monocytes # (A) 0.5 k/uL (0-1.0); Monocytes % (A) 7 %; Neutrophils # (A) 3.2 k/uL (1.3-7.7); Neutrophils % (A) 53 %; Platelet Count 194 k/uL (150-450); RDW 12.8 % (11.5-15.5); WBC 6.1 k/uL (3.8-10.6)
[2022-03-02 09:45] LABS: African American GFR (CKD) >90 (>60 ml/min/1.73 sqM); Anion Gap 8 mmol/L; Blood Urea Nitrogen 13 mg/dL (7-17); Calcium 8.6 mg/dL (8.4-10.2); Carbon Dioxide 22 mmol/L (22-30); Chloride 110 mmol/L (98-107); Glucose 88 mg/dL (74-99); Non-African American GFR(CKD) 81 (>60 ml/min/1.73 sqM); Potassium 3.9 mmol/L (3.5-5.1); Sodium 140 mmol/L (137-145)
[2022-03-02 11:08] LABS: Glucose,Whole Blood 191 mg/dL (70-110)
[2022-03-02 11:33] VITALS: BP 103/58; PULSE 61; RESP 14; TEMP 98.5
--- NOTE | 2022-03-02 11:59 | P.DS ---
Providers Date of admission: 02/27/22 07:55 Attending physician: Jon Elena Consults: 02/26/22 19:41 Consult Physician Urgent Consulting Provider: Thom Lozano Consult Reason/Comments: left leg dvt, on coumadin Do you want consulting provider notified?: Yes 02/26/22 21:49 Consult Physician Routine Consulting Provider: Stephen Ortiz Consult Reason/Comments: Coagulopathy with Failure to Warfarin Do you want consulting provider notified?: Yes 03/01/22 12:59 Consult Physician Routine Consulting Provider: Jonathan Anthony Consult Reason/Comments: IPR eval left stump, gait impairement Do you want consulting provider notified?: Yes Primary care physician: Jon Elena [facility] Course: Diagnosis Left Lower Extremity DVT possible chronic, not acute patient transitioned to [facility] from coumadin History of DVT Left lower extremity in setting of post total hysterectomy with allergy to heparin causing necrotic tissue leading to left lower extremity amputation Small diabetic ulcer on the distal stump Gait dysfunction secondary to pain and swelling in the left thumb and inability to comfortably utilize prosthesis Diabetes mellitus type 2 Hypertension Hyperlipidemia Diabetic neuropathy Chronic pain syndrome Recurrent depression Gastroesophageal reflux disease GI prophylaxis full code Discharge disposition Patient stable for discharge to subacute rehab. Recommended by vascular surgery for shrink wrap has been ordered by Win patient will continue with shrink wrap and oral lasix daily. Patient will be discharge to subacute rehab. Follow up with vascular surgery. Patient will complete 5 more days of antibiotic therapy with oral augmentin BID for 5 days and to follow up with woundcare outpatient as well. Hospital course This is a pleasant 72-year-old male with medical history significant for diabetes mellitus type 2, hypertension, hyperlipidemia, gastroesophageal reflux disease, recurrent depression, history of DVT, which occurred following a total hysterectomy which resulted in left lower extremity ALLERGIC reaction to heparin leading to necrotic tissue and rfelr-[id number]-cvmi amputation on the left which was approximately 20 [address] ago[address] Patient [address] Elena in the primary care setting. Patient has been maintained on Coumadin for the entire time. Patient reports for a history of 3 days difficulty walking due to her pain and left leg amputation. She denies fever, no chills, no shortness of breath. She also reports increased edema in the area and there is a very small ulcer to the end of the stump. Patient was evaluated this admission by vascular surgery and h ematology. Recommends as above to utilize shrink wrap. Hydrochlorothiazide has been discontinued and patient has been started on oral lasix. She also was started on IV unasyn empirically, no drainage from small ulcer on stump which appears scabbed over and no cultures taken. Will give 5 more days of oral antibiotics. She reports improvement in pain and swelling to stump. She was also ordered for shrink wrapper and was evaluated by vascular surgery who reviewed venous doppler and felt DVT was most likely chronic. On admission INR was found to be 2.9 and came down to 1.1, patient was then started on eliquis. Potassium was also found to be 3.3 and received oral potassium and potassium improved to 3.9. Patient has remained afebrile, heart rate in the 60s normal sinus rhythm, blood pressure 103/58, 98% room air. Review of Systems Constitutional: Denied any fatigue denied any fever. Cardio vascular: denied any chest pain, palpitations Gastrointestinal: denied any nausea, vomiting, diarrhea Pulmonary: Denied any shortness of breath cough Neurologic denied any new focal deficits All inpatient medications were reviewed and appropriate changes in these medications as dictated in the interval history and assessment and plan. PHYSICAL EXAMINATION: GENERAL: The patient is alert and oriented x3, not in any acute distress. Well developed, well nourished. HEENT: Pupils are round and equally reacting to light. EOMI. No scleral icterus. No conjunctival pallor. Normocephalic, atraumatic. No pharyngeal erythema. No thyromegaly. CARDIOVASCULAR: S1 and S2 present. No murmurs, rubs, or gallops. PULMONARY: Chest is clear to auscultation, no wheezing or crackles. ABDOMEN: Soft, nontender, nondistended, normoactive bowel sounds. No palpable organomegaly. MUSCULOSKELETAL: No joint swelling or deformity. L BKA present, edema improved, tiny ulcer on stump is scabbed over, no drainage noted. No local erythema. EXTREMITIES: No cyanosis, clubbing, or pedal edema. NEUROLOGICAL: Gross neurological examination did not reveal any focal deficits. SKIN: No rashes. Please see medication reconciliation for list of current medications. Thank you for allowing us participate in the care of this patient. Total time taken in discharge planning greater than 35 minutes The impression and plan of care has been dictated by Essie Patino, Nurse Practitioner as directed. Dr. Curt MD I have performed a history and physical examination and medical decision making of this patient, discussed the same with the dictator, and agree with the dictators assessment and plan as written, documented as a scribe. Based on total visit time, I have performed more than 50% of this visit. Patient Condition at Discharge: Stable Plan - Discharge Summary Discharge Rx Participant: Yes New Discharge Prescriptions: New Apixaban [Eliquis] 10 mg PO BID tab Furosemide [Lasix] 20 mg PO DAILY #0 tab INSULIN ASPART (NovoLOG) [NovoLOG (formulary)] 0 unit SQ ACHS each Continue Enalapril [Vasotec] 5 mg PO DAILY #30 tab Amitriptyline HCl [Elavil] 100 mg PO HS #30 tablet Propranolol [Inderal] 40 mg PO BID #60 tab Pravastatin Sodium [Pravachol] 40 mg PO DAILY Topiramate [Topamax] 100 mg PO BID Omeprazole [PriLOSEC] 40 mg PO DAILY Potassium Chloride [Klor-Con 10 ER] 10 meq PO DAILY Multivitamins, Thera [Multivitamin (formulary)] 1 tab PO DAILY Cholecalciferol [Vitamin D3 (25 Mcg = 1000 Iu)] 25 mcg PO DAILY Gabapentin [Neurontin] 300 mg PO TID #6 cap HYDROcodone/APAP 7.5-325MG [[place] 7.5-325] 1 tab PO Q6H PRN #4 tab PRN Reason: Pain Topiramate [Topamax] 25 mg PO BID metFORMIN HCL [Glucophage] 1,000 mg PO BID DULoxetine HCL [Cymbalta] 20 mg PO DAILY Ascorbic Acid [Vitamin C] 1,000 mg PO DAILY Discontinued hydroCHLOROthiazide [Hydrodiuril] 12.5 mg PO DAILY #30 cap Warfarin Sodium [Jantoven] 7.5 mg PO HS Discharge Medication List Enalapril [Vasotec] 5 mg PO DAILY #30 tab 03/02/15 [Rx] Amitriptyline HCl [Elavil] 100 mg PO HS #30 tablet 04/01/15 [Rx] Propranolol [Inderal] 40 mg PO BID #60 tab 04/01/15 [Rx] Pravastatin Sodium [Pravachol] 40 mg PO DAILY 06/29/18 [History] Ascorbic Acid [Vitamin C] 1,000 mg PO DAILY 02/26/22 [History] Cholecalciferol [Vitamin D3 (25 Mcg = 1000 Iu)] 25 mcg PO DAILY 02/26/22 [History] DULoxetine HCL [Cymbalta] 20 mg PO DAILY 02/26/22 [History] Multivitamins, Thera [Multivitamin (formulary)] 1 tab PO DAILY 02/26/22 [Hist ory] Omeprazole [PriLOSEC] 40 mg PO DAILY 02/26/22 [History] Potassium Chloride [Klor-Con 10 ER] 10 meq PO DAILY 02/26/22 [History] Topiramate [Topamax] 25 mg PO BID 02/26/22 [History] Topiramate [Topamax] 100 mg PO BID 02/26/22 [History] metFORMIN HCL [Glucophage] 1,000 mg PO BID 02/26/22 [History] Apixaban [Eliquis] 10 mg PO BID tab 03/02/22 [Rx] Furosemide [Lasix] 20 mg PO DAILY #0 tab 03/02/22 [Rx] Gabapentin [Neurontin] 300 mg PO TID #6 cap 03/02/22 [Rx] HYDROcodone/APAP 7.5-325MG [[place] 7.5-325] 1 tab PO Q6H PRN #4 tab 03/02/22 [Rx] INSULIN ASPART (NovoLOG) [NovoLOG (formulary)] 0 unit SQ ACHS each 03/02/22 [Rx] Follow up Appointment(s)/Referral(s): Jon Elena MD [Primary Care Provider] - 1-2 days Silvio Stevens [NON-STAFF] - As Needed (stump state attorney) Angie Christianson DO [STAFF PHYSICIAN] - 1 Week Ambulatory/Diagnostic Orders: Basic Metabolic Panel [LAB.AMB] Time Frame: 3 Days, Location: None Selected Patient Instructions/Handouts: Apixaban (By mouth), Deep Vein Thrombosis (DC) Activity/Diet/Wound Care/Special Instructions: Continue Eliquis 10 mg PO BID until 03/07/2022 2100 Dose Begin Eliquis 5 mg PO BID on 03/08/2022 Elevate left lower extremity, apply compression stump state attorney from [place] Recommended by vascular surgery not using prosthetic at this time due to swelling and pain - follow up with vascular surgery outpatient Discharge Disposition: TRANSFER TO SNF/F
[2022-03-02] MEDS: HYDROcodone/APAP 7.5-325MG 1 EACH TAB PO PRN (13:59)
[2022-03-02 16:19] LABS: APTT 98 Sec(s) (<43); APTT 1:1 Mix 51 Sec(s) (<43); DRVVT 1:1 Mix 43 Sec(s) (<44); DRVVT Confirmation Negative (Negative); Dilute Russell Viper Venom 65 Sec(s) (<44); Hexagonal Phase Neutralization Positive (Negative)
[2022-03-02 17:49] LABS: Cardiolipin Ab IgG Interp NEGATIVE (NEGATIVE); Cardiolipin Ab IgM Interp NEGATIVE (NEGATIVE); Cardiolipin IgA Antibody <2.0 U/mL; Cardiolipin IgM Antibody <1.5 U/mL
== END 2022-03-02 14:54 | DRG 300 ==
LOC: EC 15:40 → 6NMEDSUR 19:41 → OBSVTOIN 02-27 07:55 → 5NMEDONC 02-28 22:44
PROVIDERS: ADMIT Internal Medicine Geriatric Medicine; ATTEND Internal Medicine Geriatric Medicine
DX: I82.512 Chronic embolism and thrombosis of left femoral vein (principal); F33.9 Major depressive disorder, recurrent, unspecified; I82.532 Chronic embolism and thrombosis of left popliteal vein; R79.1 Abnormal coagulation profile; E11.40 Type 2 diabetes mellitus with diabetic neuropathy, unspecified; T87.89 Other complications of amputation stump; Y83.5 Amputation of limb(s) as the cause of abnormal reaction of the patient, or of later complication, without mention of misadventure at the time of the procedure; E78.5 Hyperlipidemia, unspecified; F41.9 Anxiety disorder, unspecified; G89.4 Chronic pain syndrome; K21.9 Gastro-esophageal reflux disease without esophagitis; R26.9 Unspecified abnormalities of gait and mobility; E11.622 Type 2 diabetes mellitus with other skin ulcer; I10 Essential (primary) hypertension; Z79.01 Long term (current) use of anticoagulants; Z79.84 Long term (current) use of oral hypoglycemic drugs; Z79.899 Other long term (current) drug therapy; Z88.8 Allergy status to other drugs, medicaments and biological substances; Z89.512 Acquired absence of left leg below knee; Z90.710 Acquired absence of both cervix and uterus; Z95.828 Presence of other vascular implants and grafts; Z82.49 Family history of ischemic heart disease and other diseases of the circulatory system; Z86.718 Personal history of other venous thrombosis and embolism
CPT/HCPCS: 36415; 80048; 80053; 82232; 85025; 85598; 85610; 85613; 85730; 85732; 86147; 99285

== ENCOUNTER → 2023-06-29 | Outpatient (CLI) | payer MEDICARE, OTHER ==
[2023-06-29 13:06] LABS: African American GFR (CKD) 72 (>60 ml/min/1.73 sqM); Blood Urea Nitrogen 15 mg/dL (7-17); Non-African American GFR(CKD) 63 (>60 ml/min/1.73 sqM)
--- NOTE | 2023-06-29 22:18 | CT ---
EXAMINATION TYPE: CT brain wo con DATE OF EXAM: 06/29/2023 COMPARISON: 06/07/2018 HISTORY: 73-year-old female G43.009 Migraine R42 Dizziness TECHNIQUE: Examination was done in axial plane without intravenous contrast. Coronal and sagittal r econstructions performed. CT DLP: 1126.5 mGycm Automated exposure control for dose reduction was used. FINDINGS: Moderate volume loss overlying the bilateral superior cerebral convexities. There is no evidence of acute intracranial hemorrhage, acute ischemic changes, mass, mass-effect, or extra-axial fluid collection. There is no effacement of cerebral sulci or basal subarachnoid cister ns. There is no hydrocephalus. There is no midline shift. Padilla-white matter distinction is preserv ed. Atherosclerotic calcifications in the carotid siphons. Some nonspecific pineal gland calcifications a re noted. Mild bilateral benign basal ganglionic calcifications. There appears to have an prior surgery with bilateral medial maxillary antrectomies. Trace mucosal th ickening scattered throughout the ethmoid air cells and maxillary sinuses as well as the sphenoid sin uses. Mastoid air cells are well pneumatized. Orbits and globes appear intact. IMPRESSION: Moderate volume loss overlying the bilateral superior cerebral convexities. No acute intracranial abn ormality seen.
--- NOTE | 2023-06-29 22:24 | CT ---
EXAMINATION TYPE: CT angio neck DATE OF EXAM: 06/29/2023 COMPARISON: None HISTORY: 73-year-old female migraines, dizzy TECHNIQUE: Contiguous axial scanning of the neck performed with IV Contrast, patient injected with 65 mL of Isovue 370. Coronal and sagittal MIP reconstructions performed. CT DLP: 197.3 mGycm Automated exposure control for dose reduction was used. FINDINGS: Mild atherosclerotic arch calcifications with conventional arch vessel branching anatomy. Biapical pleural-parenchymal scarring. Dominant right vertebral artery. Possible high-grade stenosis, subtotal occlusion left vertebral marie ry origin. There is very faint delineated of enhancement throughout the cervical left vertebral arter y. The V4 segment right vertebral artery becomes hypoplastic and the basilar artery is markedly diminuti ve in caliber. There is persistent origin to the bilateral posterior cerebral arteries. The right common carotid artery is patent. Mild to moderate atherosclerotic calcification right carotid bulb with mild, 30% proximal right ICA s tenosis by NASCET criteria. Remainder of the right ICA is patent. The left common carotid artery is patent with moderate atherosclerotic calcification left carotid bif urcation with mild, 30% proximal left ICA stenosis by NASCET criteria. Remainder of the left ICA is patent. IMPRESSION: 1. DOMINANT RIGHT VERTEBRAL ARTERY. THE LEFT VERTEBRAL ARTERY IS NONDOMINANT BUT THERE IS EITHER A SE CAS STENOSIS OR SUBTOTAL OCCLUSION AT ITS ORIGIN AND ONLY FAINT INTERMITTENT ENHANCEMENT IS SEEN NELLIE NG THE COURSE OF THE CERVICAL LEFT VERTEBRAL ARTERY. 2. 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 3. THE BILATERAL POSTERIOR CEREBRAL ARTERIES ARE SUPPLIED BY PERSISTENT ORIGINS. 4. ATHEROSCLEROTIC CALCIFICATIONS AT BOTH CAROTID BIFURCATIONS WITH MILD, 30% PROXIMAL ICA STENOSIS O N BOTH SIDES.
== END | disposition home or self-care (01) ==
LOC: RADCTMAIN 12:11
PROVIDERS: ATTEND Psychiatry & Neurology Neurology
DX: G43.009 Migraine without aura, not intractable, without status migrainosus (principal); R42 Dizziness and giddiness; I65.23 Occlusion and stenosis of bilateral carotid arteries
CPT/HCPCS: 82565; 84520; 70450; 70498; 36415; Q9967

== ENCOUNTER 2023-12-12 12:46 | Emergency (ER) | payer MEDICARE, OTHER ==
--- NOTE | 2023-12-12 13:20 | ED ---
Abdominal Pain HPI - General Chief Complaint: Abdominal Pain Stated Complaint: Abd Pain Time Seen by Provider: 12/12/23 12:51 Source: patient, EMS, RN notes reviewed Mode of arrival: EMS Limitations: no limitations - History of Present Illness Initial Comments: This is a 73-year-old female who presents to the emergency department for abdominal pain. States that this started a week ago but seems to be getting worse. It is in the right lower quadrant region. She has occasional nausea. Reports a history of IBS-C and does note being constipated. Cannot recall when her last bowel movement was. She has also noted fevers this week. She was unable to walk or go about her daily activities today because of the pain. MD Complaint: abdominal pain - Related Data Home Medications Medication Instructions Recorded Confirmed Pravastatin Sodium [Pravachol] 40 mg PO DAILY 06/29/18 02/26/22 Ascorbic Acid [Vitamin C] 1,000 mg PO DAILY 02/26/22 02/26/22 Cholecalciferol [Vitamin D3 (25 25 mcg PO DAILY 02/26/22 02/26/22 Mcg = 1000 Iu)] DULoxetine HCL [Cymbalta] 20 mg PO DAILY 02/26/22 02/26/22 Multivitamins, Thera [Multivitamin 1 tab PO DAILY 02/26/22 02/26/22 (formulary)] Omeprazole [PriLOSEC] 40 mg PO DAILY 02/26/22 02/26/22 Potassium Chloride [Klor-Con 10 ER] 10 meq PO DAILY 02/26/22 02/26/22 Topiramate [Topamax] 25 mg PO BID 02/26/22 02/26/22 Topiramate [Topamax] 100 mg PO BID 02/26/22 02/26/22 metFORMIN HCL [Glucophage] 1,000 mg PO BID 02/26/22 02/26/22 Previous Rx's Medication Instructions Recorded Amitriptyline HCl [Elavil] 100 mg PO HS #30 tablet 04/01/15 Propranolol [Inderal] 40 mg PO BID #60 tab 04/01/15 Amoxic-Pot Clav 875-125Mg 1 tab PO BID 5 Days #10 tab 03/02/22 [Augmentin 875-125] Apixaban [Eliquis] 10 mg PO BID tab 03/02/22 Furosemide [Lasix] 20 mg PO DAILY #0 tab 03/02/22 Gabapentin [Neurontin] 300 mg PO TID #6 cap 03/02/22 HYDROcodone/APAP 7.5-325MG [[place] 1 tab PO Q6H PRN #4 tab 03/02/22 7.5-325] INSULIN ASPART (NovoLOG) [NovoLOG 0 unit SQ ACHS each 03/02/22 (formulary)] Ketorolac [Toradol] 10 mg PO Q6HR PRN #15 tab 12/12/23 Ondansetron Odt [Zofran Odt] 4 mg PO Q8HR PRN #20 tab 12/12/23 cefUROXime axetiL [Ceftin] 500 mg PO BID 7 Days #14 tab 12/12/23 Allergies Allergy/AdvReac Type Severity Reaction Status Date / Time heparin Allergy Anaphylaxis Verified 12/12/23 13:05 Review of Systems ROS Statement: Those systems with pertinent positive or pertinent negative responses have been documented in the HPI. ROS Other: All systems not noted in ROS Statement are negative. Past Medical History Past Medical History: Diabetes Mellitus, Deep Vein Thrombosis (DVT), GERD/Reflux, Hyperlipidemia, Hypertension Additional Past Medical History / Comment(s): CHRONIC CONSTIPATION, ABD. PAIN, HX MIGRAINES, HX DVT LEG, HAS PROSTHESIS LEFT BELOW KNEE since 1997 History of Any Multi-Drug Resistant Organisms: None Reported Past Surgical History: Cholecystectomy, Hysterectomy Additional Past Surgical History / Comment(s): left BKA. colonoscopy Past Anesthesia/Blood Transfusion Reactions: No Reported Reaction Past Psychological History: Anxiety, Depression Past Alcohol Use History: None Reported Past Drug Use History: None Reported - Past Family History Mother Family Medical History: Cancer Additional Family Medical History / Comment(s): COLON General Exam Limitations: no limitations General appearance: alert, in no apparent distress Head exam: Present: atraumatic, normocephalic, normal inspection Respiratory exam: Present: normal lung sounds bilaterally. Absent: respiratory distress, wheezes, rales, rhonchi, stridor Cardiovascular Exam: Present: regular rate, normal rhythm, normal heart sounds. Absent: systolic murmur, diastolic murmur, rubs, gallop, clicks GI/Abdominal exam: Present: soft, tenderness (RLQ), normal bowel sounds. Absent: distended Back exam: Present: CVA tenderness (R). Absent: CVA tenderness (L) Neurological exam: Present: alert, oriented X3, CN II-XII intact Psychiatric exam: Present: normal affect, normal mood Skin exam: Present: warm, dry, intact, normal color. Absent: rash Course Vital Signs 12/12/23 12/12/23 12/12/23 13:00 13:59 16:22 Temperature 98.1 F 98.2 F Pulse Rate 83 78 85 Respiratory 18 18 16 Rate Blood Pressure 131/74 136/70 173/72 O2 Sat by Pulse 100 100 99 Oximetry 12/12/23 18:27 Temperature 98.0 F Pulse Rate 79 Respiratory 18 Rate Blood Pressure 150/80 O2 Sat by Pulse 98 Oximetry Medical Decision Making - Medical Decision Making This is a 73 year old female who presents to the emergency department for abdominal pain. Was pt. sent in by a medical professional or institution? @ -No Did you speak to anyone other than the patient for history? @ -No Did you review nursing and triage notes? @ -Yes, and I agree, it is accurate with regards to the patient's symptoms. Were old charts reviewed? @ -No Differential Diagnosis? @ -Differential Abdominal Pain Women: Appendicitis, Cholecystitis, diverticulosis, ischemic bowel, pancreatitis, hepatitis, UTI, gastroenteritis, AAA, incarcerated hernia, bowel obstruction, constipation, inflammatory bowel, hepatitis, peptic ulcer disease, splenic infarction, perforated viscus, vulvitis, ovarian torsion, PID, kidney stone, placenta abruption, this is not meant to be an all-inclusive list EKG interpreted by me (3pts min.)? @ -EKG interpreted by me demonstrating the following: Sinus rhythm. Ventricular rate 71 bpm, NH interval 155 ms, QRS duration 160 ms, QTc 469 ms. X-rays interpreted by me (1pt min.)? @ -Not obtained CT interpreted by me (1pt min.)? @ -CT scan of the abdomen and pelvis obtained. My interpretation identifies right-sided hydronephrosis. U/S interpreted by me (1pt. min.)? @ -Not obtained What testing was considered but not performed? (CT, X-rays, U/S, labs)? Why? @ -None What meds were considered but not given? Why? @ -None Did you discuss the management of the patient with other professionals? @ -No Did you reconcile home meds? @ -No Was smoking cessation discussed for >3mins.? @ -No Was critical care preformed (if so, how long)? @ -No Were there social determinants of health that impacted care today? How? (Homelessness, low income, unemployed, alcoholism, drug addiction, transp ortation, low edu. Level, literacy, decrease access to med. care, group home, rehab)? @ -No Was there de-escalation of care discussed even if they declined? (Discuss DNR or withdrawal of care, Hospice)? @ -No What co-morbidities impacted this encounter? (DM, HTN, Smoking, COPD, CAD, Cancer, CVA, Hep., AIDS, mental health diagnosis, sleep apnea, morbid obesity)? @ -IBS, DM, HLD, HTN Was patient admitted / discharged? @ -Discharged. Lab work demonstrates mildly elevated LFTs and was otherwise unremarkable. Urinalysis demonstrates elevated white blood cells. CT scan of the abdomen and pelvis demonstrates multiple nonspecific and incidental findings. She is noted to have some prominence of the biliary tree that may represent postcholecystectomy changes and her age, there is no evidence of choledocholithiasis and the patient does not have pain in this region. She also has mild right hydroureteronephrosis and a possible 3 mm calcification in the distal ureter. However, no blood is present in the urine. There is also long segment wall thickening of the distal colon with inflammatory changes which are nonspecific. Discussed with the patient the possibility of symptoms being related to a kidney stone, a UTI, and colitis. Advised that we will aim to control her symptoms and she was given a prescription for Toradol and Zofran. She was also started on cefuroxime for possible associated UTI. Advised close follow-up with her primary care provider. Undiagnosed new problem with uncertain prognosis? @ -None Drug Therapy requiring intensive monitoring for toxicity (Heparin, Nitro, Insulin, Cardizem)? @ -None Were any procedures done? @ -None Diagnosis/symptom? @ -Abdominal pain, renal colic, colitis, UTI Acute, or Chronic, or Acute on Chronic? @ -Acute Uncomplicated (without systemic symptoms) or Complicated (systemic symptoms)? @ -Complicated Side effects of treatment? @ -None Exacerbation, Progression, or Severe Exacerbation] @ -Not applicable Poses a threat to life or bodily function? @ -Unclear, this will depend on the ultimate cause of her symptoms and how she progresses. Return precautions reviewed in depth, the patient is instructed to return to the emergency department with any new, worsening, or concerning symptoms. Patient verbalized understanding. This case was discussed in detail with the attending ED physician, Dr. Monet. Presentation, findings, and treatment plan discussed in detail as well. - Lab Data Result diagrams: 12/12/23 13:49 12/12/23 13:49 Lab Results 12/12/23 12/12/23 12/12/23 Range/Units 13:49 13:49 13:49 WBC 8.6 (3.8-10.6) k/uL RBC 4.02 (3.80-5.40) m/uL Hgb 12.6 (11.4-16.0) gm/dL Hct 36.1 (34.0-46.0) % MCV 89.8 (80.0-100.0) fL MCH 31.4 (25.0-35.0) pg MCHC 35.0 (31.0-37.0) g/dL RDW 12.8 (11.5-15.5) % Plt Count 230 (150-450) k/uL MPV 9.6 Neutrophils % 77 % Lymphocytes % 10 % Monocytes % 7 % Eosinophils % 3 % Basophils % 1 % Neutrophils # 6.7 (1.3-7.7) k/uL Lymphocytes # 0.9 L (1.0-4.8) k/uL Monocytes # 0.6 (0-1.0) k/uL Eosinophils # 0.2 (0-0.7) k/uL Basophils # 0.1 (0-0.2) k/uL Poikilocytosis Slight Sodium 138 (137-145) mmol/L Potassium 4.0 (3.5-5.1) mmol/L Chloride 106 (98-107) mmol/L Carbon Dioxide 20 L (22-30) mmol/L Anion Gap 12 mmol/L BUN 17 (7-17) mg/dL Creatinine 0.76 (0.52-1.04) mg/dL Est GFR (CKD-EPI)AfAm >90 (>60 ml/min/1.73 sqM) Est GFR (CKD-EPI)NonAf 79 (>60 ml/min/1.73 sqM) Glucose 128 H (74-99) mg/dL Plasma Lactic Acid Jesse 0.8 (0.7-2.0) mmol/L Calcium 9.2 (8.4-10.2) mg/dL Total Bilirubin 0.7 (0.2-1.3) mg/dL AST 53 H (14-36) U/L ALT 60 H (4-34) U/L Alkaline Phosphatase 139 H (38-126) U/L Total Protein 6.3 (6.3-8.2) g/dL Albumin 3.6 (3.5-5.0) g/dL Amylase 48 (30-110) U/L Lipase 48 (23-300) U/L Urine Color Urine Appearance (Clear) Urine pH (5.0-8.0) Ur Specific [place] (1.001-1.035) Urine Protein (Negative) Urine Glucose (UA) (Negative) Urine Ketones (Negative) Urine Blood (Negative) Urine Nitrite (Negative) Urine Bilirubin (Negative) Urine Urobilinogen (<2.0) mg/dL Ur Leukocyte Esterase (Negative) Urine WBC (0-5) /hpf Ur Squamous Epith Cells (0-4) /hpf Urine Mucus (None) /hpf 12/12/23 Range/Units 16:17 WBC (3.8-10.6) k/uL RBC (3.80-5.40) m/uL Hgb (11.4-16.0) gm/dL Hct (34.0-46.0) % MCV (80.0-100.0) fL MCH (25.0-35.0) pg MCHC (31.0-37.0) g/dL RDW (11.5-15.5) % Plt Count (150-450) k/uL MPV Neutrophils % % Lymphocytes % % Monocytes % % Eosinophils % % Basophils % % Neutrophils # (1.3-7.7) k/uL Lymphocytes # (1.0-4.8) k/uL Monocytes # (0-1.0) k/uL Eosinophils # (0-0.7) k/uL Basophils # (0-0.2) k/uL Poikilocytosis Sodium (137-145) mmol/L Potassium (3.5-5.1) mmol/L Chloride (98-107) mmol/L Carbon Dioxide (22-30) mmol/L Anion Gap mmol/L BUN (7-17) mg/dL Creatinine (0.52-1.04) mg/dL Est GFR (CKD-EPI)AfAm (>60 ml/min/1.73 sqM) Est GFR (CKD-EPI)NonAf (>60 ml/min/1.73 sqM) Glucose (74-99) mg/dL Plasma Lactic Acid Jesse (0.7-2.0) mmol/L Calcium (8.4-10.2) mg/dL Total Bilirubin (0.2-1.3) mg/dL AST (14-36) U/L ALT (4-34) U/L Alkaline Phosphatase (38-126) U/L Total Protein (6.3-8.2) g/dL Albumin (3.5-5.0) g/dL Amylase (30-110) U/L Lipase (23-300) U/L Urine Color Light Yellow Urine Appearance Clear (Clear) Urine pH 5.5 (5.0-8.0) Ur Specific [place] 1.050 H (1.001-1.035) Urine Protein Trace H (Negative) Urine Glucose (UA) Negative (Negative) Urine Ketones 2+ H (Negative) Urine Blood Negative (Negative) Urine Nitrite Negative (Negative) Urine Bilirubin Negative (Negative) Urine Urobilinogen <2.0 (<2.0) mg/dL Ur Leukocyte Esterase Large H (Negative) Urine WBC 25 H (0-5) /hpf Ur Squamous Epith Cells 1 (0-4) /hpf Urine Mucus Rare H (None) /hpf - Radiology Data Radiology results: report reviewed, image reviewed Disposition Clinical Impression: RLQ abdominal pain, Colitis, Hydronephrosis, UTI (urinary tract infection) Disposition: HOME SELF-CARE Instructions (If sedation given, give patient instructions): Renal Colic (ED), Abdominal Pain (ED) Additional Instructions: Return to the emergency department with any new, worsening, or concerning symptoms. Take the antibiotic as prescribed for 7 days. Take the Toradol with Tylenol as needed for pain relief. If you choose to take the Toradol, do not take any other anti-inflammatories such as ibuprofen, take one or the other. Take the Zofran up to every 8 hours as needed for nausea and vomiting. Follow up with your primary care provider in 1-2 days. Prescriptions: cefUROXime axetiL [Ceftin] 500 mg PO BID 7 Days #14 tab Ketorolac [Toradol] 10 mg PO Q6HR PRN #15 tab PRN Reason: Pain Ondansetron Odt [Zofran Odt] 4 mg PO Q8HR PRN #20 tab PRN Reason: Nausea And Vomiting Is patient prescribed a controlled substance at d/c from ED?: No Referrals: Jon Elena MD [Primary Care Provider] - 1-2 days Time of Disposition: 17:53
[2023-12-12] MEDS: SODIUM CHLORIDE 0.9% 1,000 ML IV STA (13:56)
[2023-12-12] MEDS: ONDANSETRON 4 MG/2 ML VIAL IVP STA (13:56)
[2023-12-12] MEDS: KETOROLAC 15 MG/ML 1 ML VIAL IVP STA (13:58)
[2023-12-12] MEDS: MORPHINE SULFATE 4 MG/ML SYRINGE IVP STA (14:00)
[2023-12-12 14:10] LABS: Basophils # (A) 0.1 k/uL (0-0.2); Basophils % (A) 1 %; Eosinophils # (A) 0.2 k/uL (0-0.7); Eosinophils % (A) 3 %; HCT 36.1 % (34.0-46.0); HGB 12.6 gm/dL (11.4-16.0); Lymphocytes # (A) 0.9 k/uL (1.0-4.8); Lymphocytes % (A) 10 %; MCH 31.4 pg (25.0-35.0); MCV 89.8 fL (80.0-100.0); Mean Platelet Volume 9.6; Monocytes # (A) 0.6 k/uL (0-1.0); Monocytes % (A) 7 %; Neutrophils # (A) 6.7 k/uL (1.3-7.7); Neutrophils % (A) 77 %; Platelet Count 230 k/uL (150-450); Poikilocytosis Slight; RBC 4.02 m/uL (3.80-5.40); RDW 12.8 % (11.5-15.5); WBC 8.6 k/uL (3.8-10.6)
[2023-12-12 14:26] LABS: ALT 60 U/L (4-34); AST 53 U/L (14-36); African American GFR (CKD) >90 (>60 ml/min/1.73 sqM); Albumin 3.6 g/dL (3.5-5.0); Alkaline Phosphatase 139 U/L (38-126); Amylase 48 U/L (30-110); Anion Gap 12 mmol/L; Blood Urea Nitrogen 17 mg/dL (7-17); Calcium 9.2 mg/dL (8.4-10.2); Carbon Dioxide 20 mmol/L (22-30); Chloride 106 mmol/L (98-107); Glucose 128 mg/dL (74-99); Lipase 48 U/L (23-300); Non-African American GFR(CKD) 79 (>60 ml/min/1.73 sqM); Sodium 138 mmol/L (137-145); Total Bilirubin 0.7 mg/dL (0.2-1.3); Total Protein 6.3 g/dL (6.3-8.2)
[2023-12-12 16:44] LABS: Appearance,Urine Clear (Clear); Bilirubin,Urine Negative (Negative); Blood,Urine Negative (Negative); Color,Urine Light Yellow; Glucose,Urine (UA) Negative (Negative); Ketones,Urine 2+ (Negative); Leukocyte Esterase,Urine Large (Negative); Mucus,Urine Rare /hpf; Nitrite,Urine Negative (Negative); PH, Urine 5.5 (5.0-8.0); Protein,Urine Trace (Negative); Squamous Epithelial Cell,Urine 1 /hpf (0-4); Urobilinogen,Urine <2.0 mg/dL (<2.0); WBC,Urine 25 /hpf (0-5)
[2023-12-12] MEDS: HYDROmorphone 1 MG/ML 1 ML SYRINGE IVP STA (17:03)
[2023-12-12] MEDS: HYDROmorphone 1 MG/ML 1 ML SYRINGE IM STA (17:03)
--- NOTE | 2023-12-12 17:28 | CT ---
EXAMINATION TYPE: CT abdomen pelvis w con CT DLP: 856 mGycm, Automated exposure control for dose reduction was used. DATE OF EXAM: 12/12/2023 3:21 PM COMPARISON: None. CLINICAL INDICATION:Female, 73 years old with history of RLQ pain; right sided abdominal pain TECHNIQUE: Axial CT of the abdomen and pelvis. Sagittal and coronal reformats were created on a [employer] workstation. Contrast used:100 mL of Isovue 300 with IV Contrast, (none if empty) Oral contrast used: without Oral Contrast (none if empty) FINDINGS: LOWER CHEST: Unremarkable ABDOMEN LIVER: Right lobe liver appears enlarged/elongated measuring 20 cm. Suspect mild diffuse hepatic stea tosis. No mass is identified. GALLBLADDER AND BILE DUCTS: Gallbladder is surgically absent with moderate biliary dilatation noted, CBD up to 13 mm. This may represent combination of postcholecystectomy changes and patient age. No cl ear evidence of choledocholithiasis shown. PANCREAS: Generally small/atrophic, without acute finding. SPLEEN: Unremarkable. ADRENAL GLANDS: Mildly thickened, may be seen with hyperplasia.. KIDNEYS AND URETERS: Kidneys enhance symmetrically.. Tiny left renal hypodensity, most likely a cyst. Dilated right extrarenal pelvis and ureter suggesting mild hydroureteronephrosis. Ureter is difficul t to trace distally but a 3 mm focal calcific density within the pelvis may reside within the ureter. No left-sided hydroureteronephrosis or evidence of ureteral stone. PELVIS BLADDER: Mildly distended without intrinsic abnormality seen. REPRODUCTIVE: Not seen likely absent, correlate with surgical history. ABDOMEN & PELVIS STOMACH AND BOWEL: Limited assessment without enteric contrast. Stomach and small bowel do not appear significantly distended to suggest obstruction. A normal appendix is not seen. There is conglomerate radiodense material seen within the right colonic lumen which may be something ingested. Mild to mod erate stool throughout the colon. Transverse colon is redundant. There is wall thickening over a rela tively long segment of the distal colon including throughout the sigmoid and to the upper rectum. Inf lammatory changes present throughout the surrounding intrapelvic fat and nonfocal free pelvic fluid. Small rounded fat density in the right pelvis is present, uncertain etiology but could represent an e piploic appendage surrounded by fluid, epiploic appendicitis is not excluded. There is what appears t o be a loop of mildly distended fluid-containing small bowel in the upper pelvis, could relate to sen tinel loop. Developing obstructive process not excluded. More superiorly within the abdomen adjacent to the redundant transverse colon, there appears to be mild nonfocal inflammatory haziness of the mes entery, this possibly relates to tracking from the the pelvic process. PERITONEUM/RETROPERITONEUM: No evidence of pneumoperitoneum. No retroperitoneal adenopathy or hemor rhage. VASCULATURE: There is atherosclerotic calcification of the abdominal aorta and branches. Atherosclerotic disease in the proximal left common iliac artery with stenosis of up to 70% is sugges sophia. Additional atherosclerotic calcification throughout the visualized bilateral iliac arterial tree s. There appear to be a couple of stents in the left common iliac vein, with possibly associated calcifi cations. Patency of the veins is unknown from this study. 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 The second is in the hepatic level IVC with se veral of its prongs protruding beyond the lumen of the vena cava. No surrounding fluid is seen. LYMPH NODES: No enlarged nodes by CT size criteria. SOFT TISSUE/ABDOMINAL WALL: Unremarkable MUSCULOSKELETAL: Moderate diffuse osseous degenerative changes. No acute bony abnormalities. IMPRESSION: 1. Mild hepatosplenomegaly. 2. Status post cholecystectomy with prominence of the biliary tree. This may represent combination o f postcholecystectomy changes and patient age. No clear evidence of choledocholithiasis shown. Luist kristen please correlate clinically with LFTs to help exclude obstructive process. 3. Mild right hydroureteronephrosis is suggested, there is possibly a 3 mm calcification in the dist al ureter. 4. Long segment wall thickening of the distal colon, with inflammatory changes of the intrapelvic fl at and small amounts of fluid. Findings are nonspecific, could be related to colitis or neoplasm. 5. Diffuse atherosclerotic disease, including disease in the proximal left common iliac artery with stenosis of up to 70% suggested. 6. Other chronic and likely incidental findings, as described above.
[2023-12-12] MEDS: cefTRIAXone IN SWFI 1,000 MG/10 ML SYRINGE IVP STA (18:06)
[2023-12-12 18:29] VITALS: BP 150/80; PULSE 79; RESP 18; TEMP 98
[2023-12-12] MEDS: ONDANSETRON 4 MG ODT STARTER PACK 2 TAB BTL PO STA (18:29)
[2023-12-12] MEDS: traMADol 50 MG STARTER PACK 3 TAB BTL PO STA (18:29)
[2023-12-12] MEDS: cefTRIAXone 1,000 MG VIAL (IM USE) IM STA (18:30)
[2023-12-12] MEDS: KETOROLAC 15 MG/ML 1 ML VIAL IM STA (18:30)
[2023-12-12] MEDS: HYDROmorphone 0.5 MG/0.5 ML SYRINGE IM STA (18:31)
== END 2023-12-12 18:37 | disposition home or self-care (01) ==
LOC: EC 12:46
DX: K52.9 Noninfective gastroenteritis and colitis, unspecified (principal); N13.30 Unspecified hydronephrosis; N39.0 Urinary tract infection, site not specified; Z88.8 Allergy status to other drugs, medicaments and biological substances; Z90.49 Acquired absence of other specified parts of digestive tract
CPT/HCPCS: 36415; 93005; 80053; 82150; 83605; 83690; 85025; 81001; 87086; 74177; 99285; 96374; 96375 ×2; 96372 ×4; 96361; J2270; J2405; J0696; J1170 ×2; J1885; S0119; Q9967

== ENCOUNTER → 2024-12-14 | Outpatient (CLI) | payer MEDICARE, OTHER ==
--- NOTE | 2024-12-14 15:13 | CT ---
EXAMINATION TYPE: CT brain wo con DATE OF EXAM: 12/14/2024 COMPARISON: 06/29/2023 CLINICAL INDICATION: Female, 74 years old with history of G43.009 MIGRAINE W/O AURA, NOT INTRACTABLE, W/O ST; PHH, Headaches. CT DLP: 1219 mGycm Automated exposure control for dose reduction was used. Findings: The ventricles are not enlarged. There is prominence of the sulci over the convexities consistent wit h moderate cortical atrophy. There is no mass effect or shift of the midline structures. There is minimal basal ganglia calcification. There is no acute intra or extra-axial hemorrhage. The posterior fossa including the brainstem, fourth ventricle and cerebellar pontine angles appear no rmal. Intraorbital contents appear normal and symmetric. 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 The mastoid air cells are well a erated. The calvarium is intact. IMPRESSION: 1. No acute bleed or mass effect. 2. Moderate cortical atrophy unchanged compared to previous [facility], , 12/14/2024 3:10 PM
== END | disposition home or self-care (01) ==
LOC: RADCTMAIN 14:01
PROVIDERS: ATTEND Psychiatry & Neurology Neurology
DX: G43.009 Migraine without aura, not intractable, without status migrainosus (principal); G31.9 Degenerative disease of nervous system, unspecified
CPT/HCPCS: 70450